=== PATIENT | female | born 1950 | race Caucasian/White ===

== ENCOUNTER 2017-05-23 22:05 | Inpatient (IN) | payer MEDICARE, OTHER ==
[2017-05-23 23:00] LABS: BILIRUBIN,URINE NEGATIVE (NEGATIVE)
[2017-05-23 23:01] LABS: UA CHARGE (STRIP ONLY) YES; UR CULTURE IF IND NOT INDICATED
[2017-05-23 23:24] LABS: BASOPHILS # (AUTO) 0.1 10^3/uL (0.0-0.1); EOSINOPHILS # (AUTO) 0.2 10^3/uL (0.0-0.7); EOSINOPHILS % (AUTO) 2.6 %; HCT - HEMATOCRIT 43.2 % (37.0-47.0); HGB - HEMOGLOBIN 14.7 g/dL (12.0-16.0); LYMPHOCYTES # (AUTO) 3.1 10^3/uL (1.5-3.5); LYMPHOCYTES % (AUTO) 32.6 %; MEAN CORPUSCULAR HEMOGLOBIN 29.9 pg (27.0-31.0); MEAN CORPUSCULAR HGB CONC 33.9 g/dL (32.0-36.0); MEAN PLATELET VOLUME 10.8 fL (7.9-10.8); MONOCYTES # (AUTO) 0.9 10^3/uL (0.0-1.0); MONOCYTES % (AUTO) 9.4 %; NEUTROPHILS # (AUTO) 5.1 10^3/uL (1.5-6.6); NEUTROPHILS % (AUTO) 54.4 %; RED BLOOD COUNT 4.91 10^6/uL (4.20-5.40); RED CELL DISTRIBUTION WIDTH 14.3 % (12.0-15.0); UNCORRECTED WHITE BLOOD COUNT 9.4 x10^3/uL; WHITE BLOOD COUNT 9.4 x10^3/uL (4.8-10.8)
[2017-05-23 23:25] LABS: ALBUMIN/GLOBULIN RATIO 1.4 (1.0-2.2); BILIRUBIN,TOTAL 0.9 mg/dL (0.2-1.0); BUN - BLOOD UREA NITROGEN 19 mg/dL (6-20); CALCIUM 9.6 mg/dL (8.5-10.3); CARBON DIOXIDE - CO2 24 mmol/L (21-32); CHLORIDE 106 mmol/L (101-111); CREATININE 0.8 mg/dL (0.4-1.0); GFR - MDRD 71 (>89); GLUCOSE 105 mg/dL (70-100); LIPASE 30 U/L (22-51); POTASSIUM 3.8 mmol/L (3.5-5.0); SALICYLATE < 6.0 mg/dL; SODIUM 139 mmol/L (135-145); TOTAL PROTEIN 7.3 g/dL (6.7-8.2)
[2017-05-23 23:29] LABS: ACETAMINOPHEN < 10 ug/mL (10-30)
--- NOTE | 2017-05-23 23:43 | ED Physician Documentation ---
PD HPI ALTERED MENTAL STATUS - Stated complaint Stated Complaint: STROKE SYMPTOMS - Chief complaint Chief Complaint: Neuro - History obtained from History obtained from: Patient, Family - History of Present Illness Timing - onset: How many days ago (several) Timing - duration: Days (several) Timing - details: Gradual onset Quality / character: Confused, Memory Loss (short term). No: Less responsive, Unresponsive Associated symptoms: No: Fever, Headache, Stiff neck, Dyspnea, Cough, NVD, Urinary sx, General weakness, Focal weakness, Seizure activity, Syncope Contributing factors: No: Anticoagulated, Diabetic, Cancer, COPD, New medication , Recent med change, Recent illness, Recent injury, Intoxicated, Substance abuse , Known psych illness Basline status: Alert and oriented X 3, Ambulatory, Independent Similar symptoms before: Has not had sx before Recently seen: Not recently seen - Additional information Additional information: Patient is a 66-year-old female who was brought into the emergency department by her family for acute confusion for the past 2 days. Apparently did not know her own children. Went to work and did not know any of her coworkers are how to perform her usual job. This appears to be a very abrupt change in mental status. No fevers. No trauma. Review of Systems Ten Systems: 10 systems reviewed and negative Constitutional: denies: Fever, Chills Nose: denies: Rhinorrhea / runny nose, Congestion Respiratory: denies: Cough GI: denies: Nausea, Vomiting, Diarrhea Skin: denies: Rash Musculoskeletal: denies: Neck pain, Back pain Neurologic: reports: Confused, Altered mental status. 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 - Allergies Allergies/Adverse Reactions: Allergies Allergy/AdvReac Type Severity Reaction Status Date / Time No Known Drug Allergies Allergy Verified 05/23/17 22:15 - Social History Does the pt smoke?: No Smoking Status: Never smoker Does the pt drink ETOH?: No Does the pt have substance abuse?: No - Immunizations Immunizations are current?: No PD ED PE NORMAL - Vitals Vital signs reviewed: Yes - General General: Alert and oriented X 3, No acute distress, Well developed/nourished - HEENT HEENT: Atraumatic, PERRL, Moist mucous membranes - Neck Neck: Supple, no meningeal sign - Cardiac Cardiac: RRR, Strong equal pulses - Respiratory Respiratory: No respiratory distress, Clear bilaterally - Abdomen Abdomen: Soft, Non tender - Back Back: No spinal TTP - Derm Derm: Warm and dry - Extremities Extremities: No edema, No calf tenderness / cord - Neuro Neuro: Alert and oriented X 3, historic site administrator 2-12 intact, No motor deficit, No sensory deficit, Normal speech, Other (Normal cerebellar tests) - Psych Psych: Normal mood, Normal affect Results - Vitals Vitals: Vital Signs - 24 hr 05/23/17 05/23/17 22:12 23:20 Temperature 36.1 C L Heart Rate 52 L 49 L Respiratory 16 16 Rate Blood Pressure 198/91 H 189/76 H O2 Saturation 97 97 Oxygen O2 Source Room air - Labs Labs: Laboratory Tests 05/23/17 05/23/17 05/23/17 22:37 22:47 23:05 WBC 9.4 RBC 4.91 Hgb 14.7 Hct 43.2 MCV 88.0 MCH 29.9 MCHC 33.9 RDW 14.3 Plt Count 205 MPV 10.8 Neut # 5.1 Lymph # 3.1 [place] # 0.9 Eos # 0.2 Baso # 0.1 Absolute Nucleated RBC 0.00 Nucleated RBCs 0.0 APTT Sodium Potassium Chloride Carbon Dioxide Anion Gap BUN Creatinine Estimated GFR (MDRD) Glucose POC Whole Bld Glucose 94 Calcium Total Bilirubin AST ALT Alkaline Phosphatase Troponin I Total Protein Albumin Globulin Albumin/Globulin Ratio Lipase Urine Color YELLOW Urine Clarity CLEAR Urine pH 6.0 Ur Specific [place] 1.020 Urine Protein NEGATIVE Urine Glucose (UA) NEGATIVE Urine Ketones NEGATIVE Urine Occult Blood NEGATIVE Urine Nitrite NEGATIVE Urine Bilirubin NEGATIVE Urine Urobilinogen 0.2 (NORMAL) Ur Leukocyte Esterase NEGATIVE Ur Microscopic Review NOT INDICATED Urine Culture Comments NOT INDICATED Salicylates Urine Opiates Screen NEGATIVE Ur Oxycodone Screen NEGATIVE Urine Methadone Screen NEGATIVE Ur Propoxyphene Screen NEGATIVE Acetaminophen Ur Barbiturates Screen NEGATIVE Ur Tricyclics Screen NEGATIVE Ur Phencyclidine Scrn NEGATIVE Ur Amphetamine Screen NEGATIVE U Methamphetamines Scrn NEGATIVE U Benzodiazepines Scrn NEGATIVE Urine Cocaine Screen NEGATIVE U Cannabinoids Screen NEGATIVE Ethyl Alcohol 06/05/23/17 05/23/17 23:05 23:05 23:05 WBC RBC Hgb Hct MCV MCH MCHC RDW Plt Count MPV Neut # Lymph # [place] # Eos # Baso # Absolute Nucleated RBC Nucleated RBCs APTT 30.9 Sodium 139 Potassium 3.8 Chloride 106 Carbon Dioxide 24 Anion Gap 9.0 BUN 19 Creatinine 0.8 Estimated GFR (MDRD) 71 L Glucose 105 H POC Whole Bld Glucose Calcium 9.6 Total Bilirubin 0.9 AST 27 ALT 24 Alkaline Phosphatase 68 Troponin I < 0.04 Total Protein 7.3 Albumin 4.3 Globulin 3.0 Albumin/Globulin Ratio 1.4 Lipase 30 Urine Color Urine Clarity Urine pH Ur Specific [place] Urine Protein Urine Glucose (UA) Urine Ketones Urine Occult Blood Urine Nitrite Urine Bilirubin Urine Urobilinogen Ur Leukocyte Esterase Ur Microscopic Review Urine Culture Comments Salicylates < 6.0 Urine Opiates Screen Ur Oxycodone Screen Urine Methadone Screen Ur Propoxyphene Screen Acetaminophen < 10 L Ur Barbiturates Screen Ur Tricyclics Screen Ur Phencyclidine Scrn Ur Amphetamine Screen U Methamphetamines Scrn U Benzodiazepines Scrn Urine Cocaine Screen U Cannabinoids Screen Ethyl Alcohol < 5.0 - Rads (name of study) head CT Radiology: Prelim report reviewed, EMP read contemporaneously, See rad report ( No definite CT evidence of acute intracranial abnormality, specifically no CT evidence of acute infarct, intracranial hemorrhage, mass effect, midline shift, or hydrocephalus. Acute infarct, however, is not excluded by CT. Ill-defined hypodensity within the right basal ganglia (series 3 image 12, series 6 image 16 ) measuring approximately 1.3 cm. This is favored to represent sequela of remote lacunar infarct. Moderate diffuse cerebral and cerebellar volume loss with ex vacuo dilatation of the ventricles and sulci. ) PD MEDICAL DECISION MAKING - ED course Complexity details: reviewed results, re-evaluated patient, considered differential, d/w patient, d/w family ED course: Patient is a 66-year-old female who presents to the emergency department with acute mental status changes. Concern for possible lacunar stroke. No evidence of encephalitis, meningitis. Also possible that she has had mild dementia and this is simply worsening. She does not see a primary care provider. She does have hypertension and used to be on medications, but is no longer taking them. Is not currently taking any medications at home. No fevers. No neck pain. Discussed the case with Dr. Rodrigues and will admit the patient. This document was made in part using voice recognition software. While efforts are made to proofread this document, sound alike and grammatical errors may occur. Departure - Departure Disposition: ED Place in Observation Clinical Impression: Confusion, Lacunar infarction Hypertension Qualifiers: Hypertension type: essential hypertension Qualified Code(s): I10 - Essential ( primary) hypertension Condition: Stable Discharge Date/Time: 05/24/17 01:21
--- NOTE | 2017-05-23 23:54 | CT Preliminary Report ---
Exam: CT Head W/O IMPRESSION: 1. No definite CT evidence of acute intracranial abnormality, specifically no CT evidence of acute in farct, intracranial hemorrhage, mass effect, midline shift, or hydrocephalus. Acute infarct, however, is not excluded by CT. 2. Ill-defined hypodensity within the right basal ganglia (series 3 image 12, series 6 image 16) lida uring approximately 1.3 cm. This is favored to represent sequela of remote lacunar infarct. 3. Moderate diffuse cerebral and cerebellar volume loss with ex vacuo dilatation of the ventricles an d sulci. [facility] SITE ID: [id number]
--- NOTE | 2017-05-23 23:57 | CT Report ---
EXAM: CT HEAD EXAM DATE: 05/23/2017 10:59 PM. CLINICAL HISTORY: Altered mental status. COMPARISON: None. TECHNIQUE: Multiaxial CT images were obtained from the foramen magnum to the vertex. IV contrast: Non e. Reformats: Coronal. In accordance with CT protocol optimization, one or more of the following dose reduction techniques w ere utilized for this exam: automated exposure control, adjustment of mA and/or KV based on patient s ize, or use of iterative reconstructive technique. FINDINGS: Parenchyma: No intraparenchymal hemorrhage. No evidence of mass, midline shift, or CT findings of acu te infarction. There is ill-defined hypodensity within the right basal ganglia (series 3 image 12, se nolberto 6 image 16) measuring approximately 1.3 cm. This is favored to represent sequela of remote lacun ar infarct. Varela-white differentiation is distinct. Extraaxial Spaces: Normal for age. No subdural or epidural collections identified. Ventricles: The ventricles and cortical sulci are enlarged, consistent with age-related tissue loss. Sinuses: Imaged paranasal sinuses, orbits, and mastoids show no significant abnormality. Bones: No evidence of fracture or calvarial defect. Other: Diffuse chronic microangiopathic white matter changes are evident. IMPRESSION: 1. No definite CT evidence of acute intracranial abnormality, specifically no CT evidence of acute in farct, intracranial hemorrhage, mass effect, midline shift, or hydrocephalus. Acute infarct, however, is not excluded by CT. 2. Ill-defined hypodensity within the right basal ganglia (series 3 image 12, series 6 image 16) lida uring approximately 1.3 cm. This is favored to represent sequela of remote lacunar infarct. 3. Moderate diffuse cerebral and cerebellar volume loss with ex vacuo dilatation of the ventricles an d sulci. [facility] Referring Provider Line: [phone] SITE ID: [id number]
[2017-05-24] MEDS ORDERED: ACETAMINOPHEN 325 MG TABLET PO PRN (00:09)
[2017-05-24] MEDS ORDERED: ONDANSETRON 4 MG/2 ML VIAL IVP PRN (00:09)
[2017-05-24] MEDS ORDERED: HYDROcod/ACETAM 5/325 MG TABLET PO PRN (00:09)
[2017-05-24] MEDS ORDERED: PROCHLORPERAZINE 10 MG/2 ML VIAL IVP PRN (00:09)
[2017-05-24] MEDS ORDERED: PROMETHAZINE 25 MG/1 ML VIAL IM PRN (00:09)
[2017-05-24] MEDS ORDERED: SODIUM CHLORIDE FLUSH 0.9% 10 ML SYRINGE IVP PRN (00:09)
[2017-05-24] MEDS ORDERED: HYDROcod/ACETAM 10 MG/325 MG TABLET PO PRN (00:09)
[2017-05-24] MEDS ORDERED: NIFEdipine ER 30 MG TABLET PO SCH (01:30)
[2017-05-24] MEDS: ASPIRIN 325 MG TABLET PO SCH ×2 (01:50→09:57)
--- NOTE | 2017-05-24 03:45 | HISTORY & PHYSICAL EXAMINATION ---
Chief Complaint - Chief Complaint Chief Complaint: confusion History of Present Illness - Admitted From Admitted From:: emergency department - History Obtained From Records Reviewed: yes History obtained from: patient, patient's and patient's granddaughter Exam Limitations: none - History of Present Illness HPI Comment/Other: Patient is a very pleasant 66-year-old female with a past medical history significant for hypertension not on any medications and according to the granddaughter she has been hospitalized before and told she had a stroke and [place] but the patient denies this she presented to the emergency department today for confusion. The patient does admit that she was confused but states that this is do to being overworked and a lack of eating. The patient's granddaughter and tell a different story. The patient's granddaughter states that 2 days ago the patient became acutely confused. 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 When she arrived she could not remember any of her coworkers names and could not remember what she was supposed to be doing. The patient's states that the patient has had some bouts of memory loss and confusion off and on over the years but this is the worst that he has ever seen. The patient's granddaughter states that she continued to be confused today. She states that her grandmother told her that she felt as though she was in a fog. The granddaughter states she could not remember how many children she has or their names. Also for the last 2 days she has been talking to her mother who many years ago. The family were very concerned with this behavior. The patient states she was talking to her spirit.The patient stated that she had worked very hard this week and blamed that on her confusion. The patient did not have any focal weakness or focal neurologic symptoms she was just confused. The patient denied any headaches, blurred vision, runny nose, fevers, chills, chest pain, shortness of air, orthopnea, increased lower extremity swelling, abdominal pain, nausea, vomiting , urinary urgency, frequency or dysuria, she also denied any focal neurologic deficits. The patient had normal speech and initially was disoriented to time. The patient's also stated that the patient was more irritable than normal and was easily losing her temper. The patient stated that this was due to her and if he just left her alone she would not be so irritated. The family states the patient does not like to go to the doctor or take medications or come to the hospital. Today the granddaughter brought the patient to the hospital saying that the grandaughter needed to come in for something. On presentation to the emergency department the patient was afebrile she was bradycardic and very hypertensive with blood pressure of 198/91 she was otherwise not in any respiratory distress. The patient was alert, talking and seemed to be quite oriented. She did not have any obvious focal neurologic deficits. According to the family she still was not her normal self. The patient 's CBC, chemistry, urine analysis and urine tox screen were all within normal limits. The patient's CT head revealed an ill-defined hypodensity within the right basal ganglia measuring approximately 1.3 cm. This is papered to represent sequelae of remote lacunar infarct. The patient was also found to have moderate diffuse cerebral and cerebellar volume loss with ex vacuo dilated patient of the ventricles and sulci. Given the CT findings the patient was thought to have had likely had a recent stroke and was now manifesting this memory loss and confusion. The patient was started on aspirin and Lipitor. She was admitted to the medical [facility]ino[facility] and we will get further imaging with a CT angiogram and MRI of the brain. Review of Systems - Constitutional Constitutional: reports: Fatigue, Weakness. denies: Fever, Chills, Malaise, Poor appetite, Diaphoresis, Night sweats, Weight gain, Weight loss - Eyes Eyes: denies: Pain, Irritation, Amaurosis, Blurred vision, Spots in vision, Vision loss, Dipolpia - Ears, Nose & Throat Ears, Nose & Throat: denies: Ear pain, Hearing loss, Hearing aids, Tinnitus, Vertigo, Nasal discharge, Nosebleeds, Nasal congestion, Sore throat, Hoarseness , Mouth lesions - Cardiovascular Cariovascular: denies: Irregular heart rate, Palpitations, Chest pain, Edema, Lightheadedness, Syncope, Exertional dyspnea, Decr. exercise tolerance, Orthopnea - Respiratory Respiratory: denies: Cough, Sputum production, Wheezing, Snoring, Hemoptysis, Orthopnea, SOB at rest, SOB with exertion, Pleuritic pain - Gastrointestinal Gastrointestinal: denies: Abdominal pain, Abdominal distention, Constipation, Diarrhea, Change in bowel habits, Rectal bleeding, Black stools, Bloody stools, Nausea, Vomiting, Bile emesis, Sd blood emesis, Coffee grounds emesis, Bloating, Poor appetite - Genitourinary Genitourinary: denies: Dysuria, Frequency, Urgency, Hematuria, Incontinence, Flank pain, Nocturia - Musculoskeletal Musculoskeletal: denies: Muscle pain, Back pain, Muscle aches, Stiffness, Limited range of motion, Muscle weakness, Gout, Joint pain, Joint swelling - Integumentary Integumentary: denies: Rash, Pruritis, Lesions, Dryness, Lumps, Nail changes - Neurological Neurological: reports: General weakness, Memory problems. denies: Focal weakness, Headache, Dizziness, Numbness, Pre-existing deficit, Abnormal gait, Seizures, Incoordination, Slurred speech - Psychiatric Psychiatric: denies: Depression, Anxiety, Suicidal - Endocrine Endocrine: denies: Polyuria, Polydypsia, Polyphagia, Intolerance to cold, Intolerance to heat - Hematologic/Lymphatic Hematologic/Lymphatic: denies: Anemia, Petechiae, Blood clots, Lymphadenopathy History - Past Medical History Cardiovascular: reports: Hypertension, [place] Respiratory: reports: Other Neuro: reports: CVA Endocrine/Autoimmune: reports: None GI: reports: None CATALYST UNIT OPERATOR: reports: None : reports: Incontinence HEENT: reports: None Psych: reports: None Musculoskeletal: reports: Chronic back pain Derm: reports: Other MRSA Hx?: No Other Past Medical History: 1. Hypertension. 2. [place] according to patient's granddaughter but denied by patient. 3. CVA according to patient's grand daughter but denied by patient - Past Surgical History /CATALYST UNIT OPERATOR: reports: section, Hysterectomy - Family & Social History Family History: Mother: (Mother at 93 and had dementia), Alzheimer 's Disease, Father: , Alcoholism Family History Comment/Other: Patient's mother had dementia and at age 93. Patient's father was an alcoholic. She had no siblings Living arrangement: At home Living Situation: With spouse/s.o., With family (Granddaughter) Social History Notes: The patient lives with her and granddaughter and [place]. They have lived there since 1988 prior to that they were in [facility]. The patient was raised near [facility]. 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 The patient had 4 children. 2 of whom are from a previous marriage and 2 are from her current . The patient has never smoked she does not drink alcohol and denies any illicit drug use. - Substance History Use: Uses substance without health or social issues: NONE Abuse: Recurrent use of substance despite neg consequences: NONE Dependence: Experiences withdrawal or developed tolerances: NONE - POLST Patient has POLST: No POLST Status: Full Code Meds/Allgy - Allergies Allergies/Adverse Reactions: Allergies Allergy/AdvReac Type Severity Reaction Status Date / Time No Known Drug Allergies Allergy Verified 05/23/17 22:15 Exam - Vital Signs Reviewed Vital Signs: Yes Vital Signs: Vital Signs x48h Temp Pulse Pulse Resp BP BP Pulse Ox 05/24/17 02:49 158/65 H 05/24/17 01:37 36.3 C L 50 L 18 213/84 H 99 05/24/17 01:07 57 L 14 204/94 H 97 - Physical Exam General Appearance: positive: No acute distress, Alert, Other (Confusion) Eyes Bilateral: positive: Normal inspection, PERRL, EOMI, No lid inflammation, Conjunctivae nml, No scleral icterus ENT: positive: ENT inspection nml, Pharynx nml, No signs of dehydration. negative: Purulent nasal drainage, Pharyngeal erythema, Oral lesions Neck: positive: Nml inspection, Thyroid nml, No JVD, Trachea midline. negative : Thyromegaly, Lymphadenopathy (R), Lymphadenopathy (L), Carotid bruit, Tracheal deviation Respiratory: positive: Chest non-tender, No respiratory distress, Breath sounds nml. negative: Wheezes, Rales, Rhonchi Cardiovascular: positive: Regular rate & rhythm, No murmur, No gallop Peripheral Pulses: positive: 2+ Abdomen: positive: Non-tender, No organomegaly, Nml bowel sounds, No distention. negative: Guarding, Rebound Back: positive: Nml inspection. negative: CVA tenderness (R), CVA tenderness (L ) Skin: positive: Color nml, No rash, Warm. negative: Cyanosis, Pallor Extremities: positive: Non-tender, Full ROM, Nml appearance, No pedal edema Neurologic/Psychiatric: positive: CN's nml (2-12), Motor nml, Sensation nml, Mood/affect nml, Disoriented to time, Other (Confused) Conclusion/Plan - Problem List (1) Lacunar infarction Conclusion/Plan: The CT head reveals a remote lacunar infarct. It is not clear whether this is subacute and the cause of the patients symptoms or whether this is an old stroke. Considering the patients presentation we will treat this as an acute stroke until we get further imaging such as an MRI and CTA. The patient is very hypertensive on presentation given that her symptoms started a few days ago we will allow for less permissive hypertension especially since we are not completely sure whether this is truly an acute stroke as it could also be encephalopathy secondary to hypertension. Plan: CTA head and neck MRI of the brain Tele monitoring Neuro checks ASA and Lipitor A1C and Lipid profile in am Echocardiogram OT consult (2) Confusion Conclusion/Plan: Appears likely to be secondary to a stroke and likely the lacunar infarct seen on CT but will need to wait for MRI to confirm. Patient could also be having progressing dementia as patients family does give some vague history of previous off and on symptoms of memory loss. The patient also presented with a very elevated BP and has history of untreated HTN so this could all be from hypertensive encephalopathy but it is unclear at this point. Dont want to be too aggressive treating the BP as patient may have had a stoke but given that symptoms started a few days ago will treat BP less aggressively as this could be hypertensive encephalopathy. Patient does not appear to have any infections. Plan: Treat stroke and get MRI and CTA Treat BP less aggressively but bring below 185 incase this is hypertensive encephalopathy Check TSH, B12 and folate (3) Hypertension Conclusion/Plan: Patients BP is very elevated at 213/84 This could be the bodies response due to a subacute stroke with attempt to perfuse the brain parenchyma This could also be the cause of patients confusion and symptoms as she could have hypertensive encephalopathy Since it has been several days since her initial symptoms we will be less aggressive with permissive hypertension and treat the current BP Plan: Start Nifedipine 30 mg PO daily Monitor BP closely Allow for BP to be over 140 systolic and 85 diastolic but keep less than 185/100 Qualifiers: Hypertension type: essential hypertension Qualified Code(s): I10 - Essential (primary) hypertension (4) Bradycardia Conclusion/Plan: Sinus bradycardia without evidence of heart block Patients heart rate is in the 50s This could be a vagal response after an acute stroke The patient is not symptomatic unless symptoms are confusion which is unlikely Plan: Avoid any rate lowering medications Patient is being starting on nifedipine for HTN but this is not a rate lowering CCB Monitor on telemetry - Lab Results Lab results reviewed: Yes Mike Bones: 05/23/17 23:05 05/23/17 23:05 - Diagnostic Imaging Results Diagnostic Imaging Results: positive: Final report reviewed - EKG Results EKG Interpreted Independently: Yes Issues/Core Measures - Anticipated LOS Anticipated Stay Length: 2 or more midnights - DVT/VTE - Prophylaxis VTE/DVT Device ordered at admit?: Yes
[2017-05-24] MEDS ORDERED: IOPAMIDOL-300 100 ML VIAL IVP ONE (04:45)
[2017-05-24] MEDS: PANTOPRAZOLE 40 MG TABLET PO SCH (06:14)
[2017-05-24] MEDS: SODIUM CHLORIDE FLUSH 0.9% 10 ML SYRINGE IVP SCH ×3 (06:14→20:46)
--- NOTE | 2017-05-24 06:18 | CT Preliminary Report ---
Exam: CT Head Angio IMPRESSION: 1. No abnormal brain parenchymal enhancement. 2. Patent major intracranial arteries. 3. However, diffuse irregularity of the anterior and posterior circulation vessels is seen, likely re presenting severe intracranial atherosclerosis. Focal high-grade stenoses are seen in the left A1, ri ght V4 segments, and basilar artery. [facility] SITE ID: [id number]
[2017-05-24 06:26] LABS: BASOPHILS # (AUTO) 0.1 10^3/uL (0.0-0.1); BASOPHILS % (AUTO) 0.6 %; EOSINOPHILS # (AUTO) 0.2 10^3/uL (0.0-0.7); HCT - HEMATOCRIT 42.3 % (37.0-47.0); HGB - HEMOGLOBIN 14.2 g/dL (12.0-16.0); LYMPHOCYTES # (AUTO) 2.9 10^3/uL (1.5-3.5); LYMPHOCYTES % (AUTO) 27.4 %; MEAN CORPUSCULAR HGB CONC 33.5 g/dL (32.0-36.0); MEAN CORPUSCULAR VOLUME 89.4 fL (81.0-99.0); MEAN PLATELET VOLUME 11.1 fL (7.9-10.8); MONOCYTES # (AUTO) 0.9 10^3/uL (0.0-1.0); MONOCYTES % (AUTO) 8.4 %; NEUTROPHILS # (AUTO) 6.4 10^3/uL (1.5-6.6); NEUTROPHILS % (AUTO) 61.6 %; NUCLEATED RED BLOOD CELLS AUTO 0.1 /100WBC; RED BLOOD COUNT 4.73 10^6/uL (4.20-5.40); RED CELL DISTRIBUTION WIDTH 14.2 % (12.0-15.0); UNCORRECTED WHITE BLOOD COUNT 10.4 x10^3/uL; WHITE BLOOD COUNT 10.4 x10^3/uL (4.8-10.8)
--- NOTE | 2017-05-24 06:31 | CT Preliminary Report ---
Exam: CT Neck Angio IMPRESSION: 1. Focal stenoses of the bilateral vertebral artery origins measure 5060 percent on the right and 70 80 percent on the left. 2. However, the remaining cervical vertebral arteries are widely patent throughout the neck. 3. No hemodynamically significant stenosis in the carotid arteries. [facility] SITE ID: [id number]
--- NOTE | 2017-05-24 06:35 | CT Report ---
EXAM: CT ANGIOGRAM HEAD HEAD CT WITH CONTRAST EXAM DATE: 05/24/2017 04:16 AM. CLINICAL HISTORY: Lacunar infarct with 3 days of mental status change. COMPARISON: None. TECHNIQUE: Routine helical CTA imaging was performed through the head. IV Contrast: 100 mL Isovue-300 . Reconstructions: Routine multiplanar 3D MIP reconstructions. NASCET Criteria are used for stenosis measurements. In accordance with CT protocol optimization, one or more of the following dose reduction techniques w ere utilized for this exam: automated exposure control, adjustment of mA and/or KV based on patient s ize, or use of iterative reconstructive technique. FINDINGS: Anterior Circulation: The internal carotid arteries are patent from the superior cervical to the supr aclinoid portions. Calcified plaque is present in the bilateral carotid siphons but no definite high- grade stenosis is seen. The bilateral A1, A2, M1, and M2 segments are patent. No aneurysm is seen in the expected location of the anterior communicating artery. There is mild to moderate diffuse irregul arity of the anterior and middle cerebral arteries, likely representing intracranial atherosclerosis. Focal stenosis of the origin of the left A1 segment measures 70% (image 58, series 8). Posterior Circulation: Scattered calcified plaque is present in the left V4 segment but no definite h emodynamically significant stenosis is seen. The right V4 segment is diffusely irregular with coarse calcification in its mid segment and focal high-grade stenosis in its distal segment just before the basilar confluence measuring 8090% (image 87, series 8). The basilar artery is patent throughout its course to the terminus but demonstrates diffuse irregularity with multifocal stenoses which are like ly hemodynamically significant proximally. The superior cerebellar and posterior cerebral arteries ar e patent. There is origin or near origin of the bilateral posterior cerebral arteries, a normal variant. There is marked irregularity of the bilateral posterior cerebral arteries with modera te multifocal stenoses, likely representing intracranial atherosclerosis. There is normal contrast opacification in the dural venous sinuses. Other: On the postcontrast brain CT images, no abnormal brain parenchymal enhancement is appreciated. IMPRESSION: 1. No abnormal brain parenchymal enhancement. 2. Patent major intracranial arteries. 3. However, diffuse irregularity of the anterior and posterior circulation vessels is seen, likely re presenting severe intracranial atherosclerosis. Focal high-grade stenoses are seen in the left A1, ri ght V4 segments, and basilar artery. [facility] Referring Provider Line: [phone] SITE ID: [id number]
[2017-05-24 06:37] LABS: INR 1.1 (0.8-1.2); PT - PROTHROMBIN TIME 12.1 secs (9.9-12.6)
[2017-05-24 06:38] LABS: ALBUMIN/GLOBULIN RATIO 1.3 (1.0-2.2); BILIRUBIN,TOTAL 0.6 mg/dL (0.2-1.0); CALCIUM 9.1 mg/dL (8.5-10.3); CREATININE 0.7 mg/dL (0.4-1.0); POTASSIUM 3.5 mmol/L (3.5-5.0); TOTAL PROTEIN 6.7 g/dL (6.7-8.2)
--- NOTE | 2017-05-24 06:41 | CT Report ---
EXAM: CT ANGIOGRAM NECK EXAM DATE: 05/24/2017 04:16 AM. CLINICAL HISTORY: Lacunar infarct with 3 days of mental status change. COMPARISON: None. TECHNIQUE: Routine axial helical imaging was performed from the skull base through the aortic arch. I V Contrast: 100 mL Isovue-300. Reconstructions: Routine multiplanar 3D MIP reconstructions. Evaluatio n of arterial stenosis is based on a NASCET method of measurement. In accordance with CT protocol optimization, one or more of the following dose reduction techniques w ere utilized for this exam: automated exposure control, adjustment of mA and/or KV based on patient s ize, or use of iterative reconstructive technique. FINDINGS: Right Carotid: The common, internal, and external carotid arteries are patent. Mild calcified plaque is present at the carotid bifurcation but no hemodynamically significant stenosis is seen. Left Carotid: The common, internal, and external carotid arteries are patent. Mild calcified plaque i s present at the carotid bifurcation but no hemodynamically significant stenosis is seen. Vertebrals: Stenosis at the bilateral vertebral artery origins measure 5060% on the right (image 109 , series 8) and 7080% on the left (image 112, series 8). The vertebral arteries are roughly codomina nt and demonstrate no hemodynamically significant stenosis in their remaining cervical courses. Other: No pneumothorax or abnormal mass lesion is seen in the visualized upper lungs. The airway is p atent. Mild degenerative changes are present in the cervical spine. No acute abnormality is seen in t he soft tissues of the neck. IMPRESSION: 1. Focal stenoses of the bilateral vertebral artery origins measure 5060% on the right and 7080% on the left. 2. However, the remaining cervical vertebral arteries are widely patent throughout the remaining cour ses in the neck. 3. No hemodynamically significant stenosis in the carotid arteries. [facility] Referring Provider Line: [phone] SITE ID: [id number]
[2017-05-24 06:45] LABS: CHOLESTEROL 244 mg/dL; HDL CHOLESTEROL 41 mg/dL; LDL/HDL RATIO 4.2 (<4.4); TRIGLYCERIDES 147 mg/dL; VLDL CHOLESTEROL 29 mg/dL
[2017-05-24 09:46] LABS: HEMOGLOBIN A1C 0.65 g/dL
--- NOTE | 2017-05-24 09:46 | PROVIDER PROGRESS NOTE ---
Subjective - Prog Note Date Prog Note Date: 05/24/17 Prog Note Time: 09:43 - Subjective Subjective: here b/c family thinks I'm crazy, (I was talking to someone that wasnt there) "I think I was just tired they told me a few days ago I needed to take both those meds (Aspirin) When asked where she had been a few days ago that she was advised on asa, she said she'd been here that long (admitted last pm) Current Medications - Current Medications Current Medications: Active Medications Generic Name Dose Route Start Last Admin Trade Name Freq PRN Reason Stop Dose Admin Acetaminophen 650 mg 05/24/17 00:09 Tylenol PO Q4HR PRN Pain 1 to 4 Acetaminophen/Hydrocodone Bitart 1 tab 05/24/17 00:09 [place] 5/325 PO Q4HR PRN Pain 5 to 7 Acetaminophen/Hydrocodone Bitart 1 tab 05/24/17 00:09 [place] 10 Mg/325 Mg PO Q4HR PRN Pain 8 to 10 Aspirin 325 mg 05/24/17 01:00 05/24/17 09:57 Areli PO 325 mg DAILYWM SON Administration Atorvastatin Calcium 80 mg 05/24/17 21:00 05/24/17 20:45 Lipitor PO 80 mg QPM SON Administration Multivitamins 1 tab 05/24/17 08:00 05/24/17 09:57 Theragran PO 1 tab DAILYWM SON Administration Ondansetron HCl 4 mg 05/24/17 00:09 Zofran Inj IVP Q6HR PRN Nausea / Vomiting Pantoprazole Sodium 40 mg 05/24/17 07:00 05/24/17 06:14 Protonix PO 40 mg QDAC SON Administration Polyethylene Glycol 17 gm 05/24/17 09:00 05/24/17 09:57 Miralax PO 17 gm DAILY SON Administration Prochlorperazine Edisylate 10 mg 05/24/17 00:09 Compazine Inj IVP Q6HR PRN Nausea / Vomiting Promethazine HCl 25 mg 05/24/17 00:09 Phenergan Inj IM Q6HR PRN Nausea / Vomiting Sodium Chloride 10 ml 05/24/17 00:09 05/24/17 06:15 Normal Saline Flush 0.9% IVP 10 ml PRN PRN Administration NEEDED PER PROVIDER ORDERS Sodium Chloride 10 ml 05/24/17 06:00 05/24/17 20:46 Normal Saline Flush 0.9% IVP 10 ml Q8HR SON Administration No Known Home Medications [No Known Home Medications] 05/24/17 Objective - Vital Signs/Intake & Output Reviewed Vital Signs: Yes Vital Signs: Vital Signs x48h Temp Pulse Resp BP Pulse Ox 05/24/17 07:49 36.7 C 59 L 14 118/64 91 L 05/24/17 04:55 36.9 C 60 16 120/56 L 96 05/24/17 02:49 158/65 H Intake & Output: Intake & Output 05/21/17 05/22/17 05/23/17 05/24/17 23:59 23:59 23:59 23:59 Intake Total 100 Balance 100 - Objective General Appearance: positive: No acute distress, Other (lying in bed early in shift, sleeping, easily aroused pleasant, simplistic in conversation, but oriented) Eyes Bilateral: positive: Other (dysconjugate gaze (patient describes as chornoic w/ "lazy" left eye EOMs otherwise intact , face symmetric ? slight left droop, but doesnt notice strenght equal bilat upper and lower ext, no pronator drift, rapid alt movements intact) Neck: positive: Other Respiratory: positive: No respiratory distress, Breath sounds nml Cardiovascular: positive: Regular rate & rhythm, Other (sinus leslie on telemetry ) Back: negative: CVA tenderness (R), CVA tenderness (L) Skin: positive: Warm, Dry Extremities: positive: No pedal edema Neurologic/Psychiatric: positive: Oriented x3, Other (dysconjugate gaze ( patient describes as chornoic w/ "lazy" left eye EOMs otherwise intact , face symmetric ? slight left droop, but doesnt notice strenght equal bilat upper and lower ext, no pronator drift, rapid alt movements intact) - Lab Results Fish Bones: 05/24/17 05:34 05/24/17 05:34 Other Labs: Lab Results x24hrs 05/24/17 05/24/17 05/24/17 Range/Units 05:34 05:34 05:34 WBC (4.8-10.8) x10^3/uL RBC (4.20-5.40) 10^6/uL Hgb (12.0-16.0) g/dL Hct (37.0-47.0) % MCV (81.0-99.0) fL MCH (27.0-31.0) pg MCHC (32.0-36.0) g/dL RDW (12.0-15.0) % Plt Count (130-450) 10^3/uL MPV (7.9-10.8) fL Neut # (1.5-6.6) 10^3/uL Lymph # (1.5-3.5) 10^3/uL [place] # (0.0-1.0) 10^3/uL Eos # (0.0-0.7) 10^3/uL Baso # (0.0-0.1) 10^3/uL Absolute Nucleated RBC x10^3/uL Nucleated RBCs /100WBC PT (9.9-12.6) secs INR (0.8-1.2) Sodium 139 (135-145) mmol/L Potassium 3.5 (3.5-5.0) mmol/L Chloride 106 (101-111) mmol/L Carbon Dioxide 26 (21-32) mmol/L Anion Gap 7.0 (6-13) BUN 18 (6-20) mg/dL Creatinine 0.7 (0.4-1.0) mg/dL Estimated GFR (MDRD) 83 L (>89) Glucose 103 H (70-100) mg/dL Calcium 9.1 (8.5-10.3) mg/dL Total Bilirubin 0.6 (0.2-1.0) mg/dL AST 27 (10-42) IU/L ALT 22 (10-60) IU/L Alkaline Phosphatase 60 (42-121) IU/L Total Protein 6.7 (6.7-8.2) g/dL Albumin 3.8 (3.2-5.5) g/dL Globulin 2.9 (2.1-4.2) g/dL Albumin/Globulin Ratio 1.3 (1.0-2.2) Triglycerides 147 ( - 149) mg/dL Cholesterol 244 H ( - 199) mg/dL LDL Cholesterol, Calc 174 H ( - 129) mg/dL VLDL Cholesterol 29 mg/dL HDL Cholesterol 41 L (60 - ) mg/dL LDL/HDL Ratio 4.2 (<4.4) Cholesterol/HDL Ratio 6.0 (<4.4) TSH 2.10 (0.34-5.60) uIU/mL 05/24/17 05/24/17 Range/Units 05:34 05:34 WBC 10.4 (4.8-10.8) x10^3/uL RBC 4.73 (4.20-5.40) 10^6/uL Hgb 14.2 (12.0-16.0) g/dL Hct 42.3 (37.0-47.0) % MCV 89.4 (81.0-99.0) fL MCH 30.0 (27.0-31.0) pg MCHC 33.5 (32.0-36.0) g/dL RDW 14.2 (12.0-15.0) % Plt Count 186 (130-450) 10^3/uL MPV 11.1 H (7.9-10.8) fL Neut # 6.4 (1.5-6.6) 10^3/uL Lymph # 2.9 (1.5-3.5) 10^3/uL [place] # 0.9 (0.0-1.0) 10^3/uL Eos # 0.2 (0.0-0.7) 10^3/uL Baso # 0.1 (0.0-0.1) 10^3/uL Absolute Nucleated RBC 0.01 x10^3/uL Nucleated RBCs 0.1 /100WBC PT 12.1 (9.9-12.6) secs INR 1.1 (0.8-1.2) Sodium (135-145) mmol/L Potassium (3.5-5.0) mmol/L Chloride (101-111) mmol/L Carbon Dioxide (21-32) mmol/L Anion Gap (6-13) BUN (6-20) mg/dL Creatinine (0.4-1.0) mg/dL Estimated GFR (MDRD) (>89) Glucose (70-100) mg/dL Calcium (8.5-10.3) mg/dL Total Bilirubin (0.2-1.0) mg/dL AST (10-42) IU/L ALT (10-60) IU/L Alkaline Phosphatase (42-121) IU/L Total Protein (6.7-8.2) g/dL Albumin (3.2-5.5) g/dL Globulin (2.1-4.2) g/dL Albumin/Globulin Ratio (1.0-2.2) Triglycerides ( - 149) mg/dL Cholesterol ( - 199) mg/dL LDL Cholesterol, Calc ( - 129) mg/dL VLDL Cholesterol mg/dL HDL Cholesterol (60 - ) mg/dL LDL/HDL Ratio (<4.4) Cholesterol/HDL Ratio (<4.4) TSH (0.34-5.60) uIU/mL - Diagnostic Imaging Diagnostic Imaging Results: positive: Final report reviewed (discussed with neurology) Diagnostic Imaging Comments: Echocardiogram: normal LV size and function 70-75%, no WMA, severe incrase Latrial volume index (on preliminary read), trace MR, mild TR, RVSP 29 Assessment/Plan - Problem List (1) Thalamic infarct, acute Impression: on MRI; R anterior dorsal thalamic and denu of internal capusule acute inarct also deep cerebral and periventricular WM disease (also in mic) c/w started ASA and statin on admission Tele no dysrhythmia, echo no significant findings stopping Adalat started on admission to allow permissive HtN now that we know she did have stroke (her BP is reasonable, has no deficits currently at SBP 140's- 150's) Seen by PT and OT, they indicate no acute needs Discussed w/ neuro (Gianna Spencer at [facility]) and inquired if the 80-90% stenosiss noted distal segment of R V4 is pertinant (have not heard back) She indicated thalamic stroke; consistent with patients may seem to be logical and making sense, but arent May need outpatient speech language pjathology for cognitive testing post stroke (OT indicated [employer] does that VTE proph; lovenox (had SCD's on last night and today) (2) Bradycardia Impression: likely excess vagal tone in setting of acute stroke will continue tele tonight
[2017-05-24] MEDS: POLYETHYLENE GLYCOL 3350 17 GM PACKET PO SCH (09:57)
[2017-05-24] MEDS: MULTIVITAMIN TABLET PO SCH (09:57)
--- NOTE | 2017-05-24 14:04 | MRI Preliminary Report ---
Exam: MRI Brain W/O IMPRESSION: 1. Acute infarct in the right anterior thalamus and adjacent genu of the internal capsule, consistent with acute infarct (up to 7 days), as seen on the 05/23/2017 CT. No evidence of hemorrhage. 2. Mild to moderate white matter changes most consistent with sequelae of chronic small vessel ischem ic disease and a common finding in this age group. [facility] SITE ID: [id number]
--- NOTE | 2017-05-24 14:07 | MRI Report ---
EXAM: MRI BRAIN WITHOUT CONTRAST EXAM DATE: 05/24/2017 01:36 PM. CLINICAL HISTORY: 66-year-old woman with a lacunar infarct and 3 days of mental status changes. COMPARISON: Noncontrast head CT on 05/23/2017. TECHNIQUE: Multiplanar, multisequence T1-weighted and fluid-sensitive MR sequences of the brain were performed. Sequences optimized for routine evaluation. Other: None. IV Contrast: None. FINDINGS: Parenchyma: Restricted diffusion with prominent corresponding for FLAIR hyperintensity is present in the right anterior dorsal thalamus and genu of the internal capsule, consistent with acute infarct. T his measures approximately 1.7 x 0.9 cm. No evidence of hemorrhage on susceptibility weighted sequenc e. The remainder of the brain parenchyma demonstrates mild to moderate burden of nonspecific FLAIR hyper intensities in the deep cerebral and periventricular white matter as well as the mic, most consisten t with sequelae of chronic small vessel ischemic disease and a common finding in this age group. Pituitary: Unremarkable. Ventricles and Extra-axial Spaces: Ventricles are symmetric and normal in size for age. Extra-axial s paces are unremarkable. Orbits: Gaze is disconjugate, as on the prior CT. Orbits are otherwise unremarkable. Sinuses: The paranasal sinuses are clear. Small amount of fluid is present in the right mastoid air c ells. Major Vascular Flow Voids: Intact. IMPRESSION: 1. Acute infarct in the right anterior thalamus and adjacent genu of the internal capsule, consistent with acute infarct (up to 7 days), as seen on the 05/23/2017 CT. No evidence of hemorrhage. 2. Mild to moderate white matter changes most consistent with sequelae of chronic small vessel ischem ic disease and a common finding in this age group. [facility] Referring Provider Line: [phone] SITE ID: [id number]
[2017-05-24] MEDS ORDERED: ATORVASTATIN 40 MG TABLET PO SCH (21:00)
[2017-05-24] MEDS: ENOXAPARIN 40 MG/0.4 ML SYRINGE SUBQ SCH (21:19)
[2017-05-25] MEDS: PANTOPRAZOLE 40 MG TABLET PO SCH (06:39)
[2017-05-25] MEDS: SODIUM CHLORIDE FLUSH 0.9% 10 ML SYRINGE IVP SCH (06:39)
[2017-05-25 07:05] LABS: BASOPHILS # (AUTO) 0.1 10^3/uL (0.0-0.1); EOSINOPHILS # (AUTO) 0.4 10^3/uL (0.0-0.7); EOSINOPHILS % (AUTO) 4.3 %; HGB - HEMOGLOBIN 14.1 g/dL (12.0-16.0); LYMPHOCYTES # (AUTO) 2.6 10^3/uL (1.5-3.5); LYMPHOCYTES % (AUTO) 31.7 %; MEAN CORPUSCULAR HEMOGLOBIN 29.8 pg (27.0-31.0); MEAN CORPUSCULAR HGB CONC 32.8 g/dL (32.0-36.0); MEAN CORPUSCULAR VOLUME 90.8 fL (81.0-99.0); MONOCYTES # (AUTO) 0.8 10^3/uL (0.0-1.0); MONOCYTES % (AUTO) 9.9 %; NEUTROPHILS # (AUTO) 4.3 10^3/uL (1.5-6.6); NEUTROPHILS % (AUTO) 53.1 %; NUCLEATED RED BLOOD CELLS AUTO 0.1 /100WBC; RED BLOOD COUNT 4.73 10^6/uL (4.20-5.40); RED CELL DISTRIBUTION WIDTH 14.4 % (12.0-15.0); UNCORRECTED WHITE BLOOD COUNT 8.2 x10^3/uL; WHITE BLOOD COUNT 8.2 x10^3/uL (4.8-10.8)
[2017-05-25 07:08] LABS: ALBUMIN/GLOBULIN RATIO 1.3 (1.0-2.2); BILIRUBIN,TOTAL 0.8 mg/dL (0.2-1.0); CALCIUM 9.3 mg/dL (8.5-10.3); CREATININE 0.6 mg/dL (0.4-1.0); POTASSIUM 4.1 mmol/L (3.5-5.0); TOTAL PROTEIN 6.7 g/dL (6.7-8.2)
[2017-05-25 08:28] LABS: FOLATE 19.62 ng/mL (5.90 - >24.8)
[2017-05-25] MEDS ORDERED: DOCUSATE SODIUM 250 MG CAPSULE PO SCH (09:00)
[2017-05-25] MEDS ORDERED: SENNA 8.6 MG TABLET PO SCH (09:00)
--- NOTE | 2017-05-25 09:34 | Discharge Plan ---
Discharge Plan Disposition: 01 Home, Self Care Condition: Stable Prescriptions: Aspirin [Adult Low Dose Aspirin EC] 81 mg PO DAILY #30 tablet. Atorvastatin [Lipitor] 80 mg PO QPM #30 tablet Diet: Cardiac Activity Restrictions: No Restrictions Shower Restrictions: No Weight Bearing: Full Weight Additional Instructions or Follow Up instructions: You were admitted due to confusion, imaging of the brain showed a STROKE. You will start Aspirin and Lipitor daily to reduce risk of future stroke Return to the hospital for increased confusion, weakness, slurred speech. No Smoking: If you smoke, Please STOP! Call for help. Follow-up with: Dale Gorman MD [Provider Admit Priv/Credential] - 1 Week (See Dr Gorman in 1 week, can begin blood pressure management )
--- NOTE | 2017-05-25 10:09 | Discharge Plan ---
Discharge Plan Disposition: 01 Home, Self Care Condition: Stable Prescriptions: Aspirin [Adult Low Dose Aspirin EC] 81 mg PO DAILY #30 tablet. Atorvastatin Calcium 20 mg PO DAILY PM #30 tablet Amlodipine Besylate [Norvasc] 2.5 mg PO DAILY #30 tablet Diet: Cardiac Activity Restrictions: No Restrictions Shower Restrictions: No Driving Restrictions: Yes (no driving) Weight Bearing: Full Weight Additional Instructions or Follow Up instructions: You were admitted due to confusion, imaging of the brain showed a STROKE. You will start Aspirin and Lipitor (atorvastatin) daily to reduce risk of future stroke You will start Norvasc (amlodipine) to reduce blood pressure to prevent further strokes Return to the hospital for increased confusion, weakness, slurred speech. See Dr Gorman in the next 7days for blood pressure check and follow-up No Smoking: If you smoke, Please STOP! Call for help. Follow-up with: Dale Gorman MD [Provider Admit Priv/Credential] - 1 Week ()
[2017-05-25] MEDS: ASPIRIN 325 MG TABLET PO SCH (10:15)
[2017-05-25] MEDS: POLYETHYLENE GLYCOL 3350 17 GM PACKET PO SCH (10:15)
[2017-05-25] MEDS: ENOXAPARIN 40 MG/0.4 ML SYRINGE SUBQ SCH (10:15)
[2017-05-25] MEDS: MULTIVITAMIN TABLET PO SCH (10:16)
[2017-05-25] MEDS ORDERED: amLODIPine 5 MG TABLET PO SCH (11:00)
[2017-05-25 11:39] VITALS: BP 167/80
--- NOTE | 2017-05-27 07:49 | DISCHARGE SUMMARY ---
DATE OF ADMISSION: 05/24/2017 DATE OF DISCHARGE: 05/25/2017 ADMITTING PROVIDER: Martín Rodrigues MD DISCHARGING PROVIDER: UTE Hayes PRIMARY CARE PROVIDER: Dale Gorman MD DISCHARGE DIAGNOSES 1. Acute ischemic stroke, right anterior dorsal thalamic and genu of internal capsule. 2. Hypertension. 3. Bradycardia. DISCHARGE MEDICATION LIST Home medications to continue - patient was previously on no medications. New medications: 1. Aspirin 81 mg by mouth daily. 2. Atorvastatin 20 mg by mouth daily at bedtime. 3. Norvasc 2.5 mg by mouth daily. FOLLOWUP: Follow up with Dr. Gorman within 7 days for blood pressure check and followup on any maame rological symptoms, cardiac diet, activity as tolerated, no driving. HOSPITAL COURSE: Patient is a pleasant 66-year-old female with a history of hypertension b ut previously not on medications. She was brought to the emergency room for confusion. She felt yanci t this was due to being overworked and not eating much. For the last 2 days, she was reported as elayne candice to her mother, who many years ago; this is new behavior for the patient. She had no headac he, blurry vision, runny nose, fever or chills, or chest pain. No other focal weakness, and no gait changes. Her speech was normal but occasionally disoriented. Upon admission, labs and imaging were obtained. CBC grossly unremarkable. Normal anticoagulation fa ctors. Chemistries were unremarkable with an A1c of 6.2 and estimated average glucose of 131. Lipid panel obtained: Triglycerides 147, cholesterol 244, LDL 174, HDL 41 with normal B12, folate, and TSH . Brain imaging consisted of CT head, which showed no definite intracranial abnormalities, but previous old lacunar infarct on the inner right basal ganglia and moderate diffuse cerebral volume loss. Followup CTA head and neck revealed patent major intracranial arteries; however, there are diffuse ir regularities in the anterior and posterior circulation vessels likely representing severe intracrania l atherosclerosis and focal high-grade stenosis at the left A1 and right V4 segments and basilar cornel ry. MRI of the brain revealed an acute infarct in the right anterior thalamus and adjacent genu of corporate legal intern al capsule, consistent with an acute infarct within the last 7 days. There was no evidence of hemorr nasim. There were also mild to moderate white matter changes consistent with sequelae of chronic smal l vessel disease. The patient was started on aspirin, as well as Lipitor for stroke prophylaxis. Echocardiogram was ob tained, which showed a normal EF of 70% to 75%, no atrial fibrillation or valvular disease, no vegeta tions or thrombus. The patient was evaluated by both Physical and Occupational Therapy, found to be at her baseline functional status with no deficits that would require further therapy. There was con cern about the patient's cognitive status. Currently at baseline per her . If there continue s to be any concern with cognitive abilities, would refer for outpatient speech therapy to perform co gnitive evaluation. At discharge, the patient's blood pressure remained 150-160s. She will be discharged on low-density Norvasc to slowly reduce her systolic blood pressure to goal of less than 140. Patient had mild zulma ycardia, as low as 49 beats per minute initially on admission; this resolved, and her heart rate was 70 at discharge. She had no other neurological changes while in the hospital and is clear for discha rge home under the care of her with further stroke prophylaxis therapy. PHYSICAL EXAMINATION VITAL SIGNS: Temperature 36.7 degrees Celsius, heart rate 70 beats per minute, respiration 18 breaths per minute, blood pressure 167/80, 95% on room air. GENERAL: Patient is a well-developed overweight 66-year-old female who appears her stated a ge, lying in the bed in no acute distress. She is able to reposition herself in the bed, get up and walk around without any help. She has a stable gait. She follows 3-step commands, coordination inta ct; reports poor vision, improved with use of her eyeglasses. No focal neurological deficits. RESPIRATORY: Respirations equal and unlabored with clear bilateral breath sounds. CARDIAC: Regular rate and rhythm, palpable peripheral pulses, and no dependent edema in the lower ext remities. ABDOMEN: Round, soft, nontender with active bowel sounds x4 quadrants. Time spent on discharge greater than 30 minutes. JOB #: [id number] EXT JOB #:[id number]
== END 2017-05-25 12:00 | disposition home or self-care (01) | DRG 66 ==
LOC: ED 22:05 → MS 05-24 00:09
PROVIDERS: ADMIT Internal Medicine; ATTEND Nurse Practitioner Acute Care
DX: I63.9 Cerebral infarction, unspecified (principal); R41.0 Disorientation, unspecified; I63.8 Other cerebral infarction; R41.89 Other symptoms and signs involving cognitive functions and awareness; I10 Essential (primary) hypertension; R00.1 Bradycardia, unspecified
CPT/HCPCS: 36415; 70450; 70496; 70498; 70551; 80053; 80061; 80306; 80307; 80320; 80329; 81001; 81003; 82607; 82746; 83036; 83690; 84443; 84484; 85025; 85610; 85730; 87086; 93005; 93306; 99283; 99284; 99285

== ENCOUNTER 2018-03-03 06:36 | Emergency (ER) | payer MEDICARE, OTHER ==
--- NOTE | 2018-03-03 07:17 | ED Physician Documentation ---
History of Present Illness - Stated complaint Stated Complaint: BACK PX - Chief complaint Chief Complaint: Back Pain - History obtained from History obtained from: Patient, Family - History of Present Illness Timing: How many weeks ago (2) - Additonal information Additional information: 59-year-old female with history of hypertension and prior CVA has developed constipation about 2 weeks ago and she is developed some back pain associated with this. She has had back pain previously with constipation. She is not on narcotics she has been on some MiraLAX without resolution and she has taken some Metamucil as well. She is normally incontinent of urine she denies any saddle anesthesia. Review of Systems Constitutional: denies: Fever Eyes: denies: Decreased vision Ears: denies: Ear pain Nose: denies: Congestion Throat: denies: Sore throat Cardiac: denies: Chest pain / pressure, Palpitations Respiratory: denies: Dyspnea, Cough GI: reports: Constipation. denies: Abdominal Pain, Nausea, Vomiting : reports: Incontinent. denies: Dysuria, Frequency Skin: denies: Rash Musculoskeletal: reports: Back pain. denies: Neck pain, Extremity pain Neurologic: denies: Generalized weakness, Focal weakness, Numbness PD PAST MEDICAL HISTORY - Past Medical History Cardiovascular: Hypertension, [place] Respiratory: Other Neuro: CVA Endocrine/Autoimmune: None GI: None SLURRY BLENDER: None : Incontinence HEENT: None Psych: None Musculoskeletal: Chronic back pain Derm: Other - Past Surgical History Past Surgical History: Yes /SLURRY BLENDER: section, Hysterectomy - Present Medications Home Medications: Ambulatory Orders Medication Instructions Recorded Confirmed Amlodipine Besylate [Norvasc] 2.5 mg PO DAILY #30 tablet 05/25/17 Aspirin [Adult Low Dose Aspirin EC] 81 mg PO DAILY #30 tablet. 05/25/17 Atorvastatin Calcium 20 mg PO DAILY PM #30 tablet 05/25/17 - Allergies Allergies/Adverse Reactions: Allergies Allergy/AdvReac Type Severity Reaction Status Date / Time No Known Drug Allergies Allergy Verified 03/03/18 06:41 - Social History Does the pt smoke?: No Smoking Status: Never smoker Does the pt drink ETOH?: No Does the pt have substance abuse?: No - Immunizations Immunizations are current?: No - POLST Patient has POLST: No POLST Status: Full Code PD ED PE NORMAL - Vitals Vital signs reviewed: Yes (Hypertensive systolic) - General General: Alert and oriented X 3, No acute distress, Well developed/nourished - HEENT HEENT: Atraumatic - Neck Neck: Supple, no meningeal sign - Cardiac Cardiac: RRR, No murmur - Respiratory Respiratory: No respiratory distress, Clear bilaterally - Abdomen Abdomen: Soft, Other (distended and non-tender) - Back Back: No CVA TTP, Other (There is left paraspinous muscle tenderness and firmness consistent with spasm at the L2 level. ) - Derm Derm: Normal color, Warm and dry, No rash - Extremities Extremities: No deformity, No edema - Neuro Neuro: Alert and oriented X 3, No motor deficit, No sensory deficit, Normal speech Eye Opening: Spontaneous Motor: Obeys Commands Verbal: Oriented GCS Score: 15 - Psych Psych: Normal mood, Normal affect Results - Vitals Vitals: Vital Signs - 24 hr // 06:38 Temperature 36.2 C L Heart Rate 66 Respiratory 16 Rate Blood Pressure 164/69 H O2 Saturation 99 Oxygen O2 Source Room air PD MEDICAL DECISION MAKING - ED course Complexity details: reviewed results, re-evaluated patient, considered differential, d/w patient, d/w family ED course: 67-year-old female with a history of constipation has been constipated and has some back pain associated with her constipation. She is given a enema does not hold it well and has only a scant amount of hard stool out and this does not improve her back pain somewhat. She would like to try to go home to use a stimulant laxative and here she is given a dose of milk of magnesia prior to discharge. Departure - Departure Disposition: 01 Home, Self Care Clinical Impression: Constipation Qualifiers: Constipation type: unspecified constipation type Qualified Code(s): K59.00 - Constipation, unspecified Condition: Stable Instructions: ED Constipation Follow-Up: Dale Gorman MD [Primary Care Provider] - Comments: Today for your constipation use a second dose of milk of magnesia if you do not have a bowel movement within the next 6 hours. Drink extra fluids. If you continue to have pain or your symptoms worsen or change return to the emergency department at any time.
[2018-03-03] MEDS ORDERED: MAGNESIUM HYDROXIDE 2,400 MG/30 ML UDC PO STA (09:13)
[2018-03-03 09:43] VITALS: BP 166/98
== END 2018-03-03 09:43 | disposition home or self-care (01) ==
LOC: ED 06:36
DX: K59.00 Constipation, unspecified (principal); I10 Essential (primary) hypertension; I25.2 Old myocardial infarction; Z86.73 Personal history of transient ischemic attack (TIA), and cerebral infarction without residual deficits; Z79.82 Long term (current) use of aspirin
CPT/HCPCS: 99283; A9270

== ENCOUNTER 2018-06-19 23:38 | Emergency (ER) | payer MEDICARE, OTHER ==
[2018-06-19 23:51] VITALS: BP 144/71
[2018-06-19] MEDS ORDERED: PROPARACAINE 0.5% OPHTH DROPS 15 ML EACHEYE STA (23:53)
--- NOTE | 2018-06-20 00:35 | ED Physician Documentation ---
PD HPI OPHTHO - Stated complaint Stated Complaint: BILAT EYE IRRATION - Chief complaint Chief Complaint: Heent - History obtained from History obtained from: Patient - History of Present Illness Timing - onset: How many hours ago (1) Timing - duration: Hours (1) Timing - details: Abrupt onset Pain level max: 2 Pain level now: 2 Location: Both Quality / character: Burning Associated symptoms: Redness, Tearing Contributing factors: FB, Wears glasses, Other (stuffing from a pillow.). No: Wears contacts Recently seen: Not recently seen Review of Systems Constitutional: denies: Fever, Chills Eyes: reports: Irritation. 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 05/25/17 Atorvastatin Calcium 20 mg PO DAILY PM #30 tablet 05/25/17 - Allergies Allergies/Adverse Reactions: Allergies Allergy/AdvReac Type Severity Reaction Status Date / Time No Known Drug Allergies Allergy Verified 06/19/18 23:51 - Social History Does the pt smoke?: No Smoking Status: Never smoker Does the pt drink ETOH?: No Does the pt have substance abuse?: No - Immunizations Immunizations are current?: No - POLST Patient has POLST: No POLST Status: Full Code PD ED PE NORMAL - Vitals Vital signs reviewed: Yes - General General: Alert and oriented X 3 - HEENT HEENT: Moist mucous membranes, Other (B eyes - Mild conjunctival injection. No drainage. No fluorescein uptake. Eyelids everted. No foreign body visible. Otherwise normal examination of the bilateral eyes) - Neck Neck: Supple, no meningeal sign - Derm Derm: Warm and dry - Neuro Neuro: Alert and oriented X 3 - Psych Psych: Normal mood, Normal affect Results - Vitals Vitals: Vital Signs - 24 hr 06/19/18 23:49 Temperature 36.7 C Heart Rate 62 Respiratory 16 Rate Blood Pressure 144/71 H O2 Saturation 97 Oxygen O2 Source Room air PD MEDICAL DECISION MAKING - ED course Complexity details: considered differential, d/w patient ED course: Patient is a 67-year-old female who presents to the emergency department with bilateral conjunctival irritation tonight. No fluorescein uptake. No corneal abrasions. Eyes were irrigated and the sensation was resolved. Will continue supportive care and follow-up with her doctor. Patient counseled regarding signs and symptoms for which I believe and urgent re-evaluation would be necessary. Patient with good understanding of and agreement to plan and is comfortable going home at this time This document was made in part using voice recognition software. While efforts are made to proofread this document, sound alike and grammatical errors may occur. - Sepsis Event Vital Signs: Vital Signs - 24 hr 06/19/18 23:49 Temperature 36.7 C Heart Rate 62 Respiratory 16 Rate Blood Pressure 144/71 H O2 Saturation 97 Oxygen O2 Source Room air Departure - Departure Disposition: 01 Home, Self Care Clinical Impression: Irritation of both eyes Condition: Good Instructions: ED Eye Particle Conjunctiva FB Rslv Follow-Up: Dale Gorman MD [Primary Care Provider] - Within 1 week (if not better) Comments: Return if you worsen. There is no visible foreign body in your eyes tonight. Discharge Date/Time: 06/20/18 00:40
== END 2018-06-20 00:40 | disposition home or self-care (01) ==
LOC: ED 23:38
DX: H57.8 Other specified disorders of eye and adnexa (principal); I10 Essential (primary) hypertension; I25.2 Old myocardial infarction; Z79.82 Long term (current) use of aspirin
CPT/HCPCS: 99283; J3490

== ENCOUNTER 2019-07-11 13:06 | Emergency (ER) | payer MEDICARE, OTHER ==
[2019-07-11 13:14] VITALS: BP 146/93
[2019-07-11] MEDS ORDERED: MELOXICAM 7.5 MG TABLET PO STA (14:06)
--- NOTE | 2019-07-11 14:09 | ED Physician Documentation ---
History of Present Illness - Stated complaint Stated Complaint: BACK PAIN - Chief complaint Chief Complaint: Back Pain - History obtained from History obtained from: Patient - History of Present Illness Timing: How many days ago (3) Pain level max: 5 Pain level now: 4 - Additonal information Additional information: 68-year-old female presents to the emergency department stating that her back is hurting from taking care of her kittens. Has not taken anything for this. No numbness or tingling. Worse with movement and better with rest. Has a history of chronic back issues. No fevers. No IV drug use. No bowel or bladder incontinence. 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 05/25/17 Atorvastatin Calcium 20 mg PO DAILY PM #30 tablet 05/25/17 Meloxicam [Mobic] 15 mg PO DAILY PRN #20 tablet 07/11/19 - Allergies Allergies/Adverse Reactions: Allergies Allergy/AdvReac Type Severity Reaction Status Date / Time No Known Drug Allergies Allergy Verified 07/11/19 13:14 - Social History Does the pt smoke?: No Smoking Status: Never smoker Does the pt drink ETOH?: No Does the pt have substance abuse?: No - Immunizations Immunizations are current?: No - POLST Patient has POLST: No POLST Status: Full Code PD ED PE NORMAL - Vitals Vital signs reviewed: Yes - General General: Alert and oriented X 3, No acute distress, Well developed/nourished - HEENT HEENT: PERRL, Moist mucous membranes - Neck Neck: Supple, no meningeal sign, No bony TTP - Cardiac Cardiac: RRR, No murmur - Respiratory Respiratory: No respiratory distress, Clear bilaterally - Abdomen Abdomen: Soft, Non tender, Non distended - Back Back: No spinal TTP, Other (No midline tenderness to palpation. No step-off or deformity.) - Derm Derm: Warm and dry - Extremities Extremities: Other (Normal bilateral lower extremity patellar and ankle jerk reflexes. Normal great toe extension bilaterally. no saddle anesthesia) - Neuro Neuro: Alert and oriented X 3, No motor deficit, No sensory deficit - Psych Psych: Normal mood, Normal affect Results - Vitals Vitals: Vital Signs - 24 hr 07/11/19 13:09 Temperature 36.6 C Heart Rate 65 Respiratory 19 Rate Blood Pressure 146/93 H O2 Saturation 98 Oxygen O2 Source Room air PD MEDICAL DECISION MAKING - ED course Complexity details: considered differential (No cauda equina, no spinal epidural abscess, no fracture, no aortic dissection or evidence of aneursym rupture), d/w patient ED course: Patient with chronic low back pain. Will place on meloxicam. We will follow-up with her doctor. No evidence of cauda equina, epidural abscess, fracture. No imaging indicated at this time. Patient counseled regarding signs and symptoms for which I believe and urgent re-evaluation would be necessary. Patient with good understanding of and agreement to plan and is comfortable going home at this time This document was made in part using voice recognition software. While efforts are made to proofread this document, sound alike and grammatical errors may occur. Departure - Departure Disposition: 01 Home, Self Care Clinical Impression: Low back strain Qualifiers: Encounter type: initial encounter Qualified Code(s): S39.012A - Strain of muscle, fascia and tendon of lower back, initial encounter Condition: Good Instructions: ED Sprain Strain Lumbar Follow-Up: Dale Gorman MD [Primary Care Provider] - Within 1 week Prescriptions: Meloxicam [Mobic] 15 mg PO DAILY PRN #20 tablet PRN Reason: pain Comments: Return if you worsen. You can use the meloxicam as needed for pain. Follow-up with your doctor for further care. Discharge Date/Time: 07/11/19 14:18
== END 2019-07-11 14:18 | disposition home or self-care (01) ==
LOC: ED 13:06
DX: S39.012A Strain of muscle, fascia and tendon of lower back, initial encounter (principal); X50.9XXA Other and unspecified overexertion or strenuous movements or postures, initial encounter; I10 Essential (primary) hypertension; Z79.82 Long term (current) use of aspirin
CPT/HCPCS: 99282; 99283; A9270

== ENCOUNTER 2019-07-17 07:59 | Outpatient (CLI) | payer MEDICARE, OTHER ==
[2019-07-17 12:51] LABS: BASOPHILS # (AUTO) 0.1 10^3/uL (0.0-0.1); BASOPHILS % (AUTO) 0.8 %; EOSINOPHILS # (AUTO) 0.2 10^3/uL (0.0-0.7); EOSINOPHILS % (AUTO) 1.9 %; HGB - HEMOGLOBIN 15.1 g/dL (12.0-16.0); LYMPHOCYTES # (AUTO) 2.1 10^3/uL (1.5-3.5); LYMPHOCYTES % (AUTO) 27.5 %; MEAN CORPUSCULAR HEMOGLOBIN 30.7 pg (27.0-31.0); MEAN CORPUSCULAR HGB CONC 33.4 g/dL (32.0-36.0); MEAN CORPUSCULAR VOLUME 91.9 fL (81.0-99.0); MEAN PLATELET VOLUME 13.2 fL (7.9-10.8); MONOCYTES # (AUTO) 0.7 10^3/uL (0.0-1.0); MONOCYTES % (AUTO) 9.2 %; NEUTROPHILS # (AUTO) 4.7 10^3/uL (1.5-6.6); NEUTROPHILS % (AUTO) 60.3 %; PLT - PLATELET COUNT 263 10^3/uL (130-450); RED BLOOD COUNT 4.92 10^6/uL (4.20-5.40); RED CELL DISTRIBUTION WIDTH 14.6 % (12.0-15.0); WHITE BLOOD COUNT 7.8 x10^3/uL (4.8-10.8)
[2019-07-17 13:39] LABS: ALBUMIN 4.3 g/dL (3.2-5.5); ALBUMIN/GLOBULIN RATIO 1.4 (1.0-2.2); ALKALINE PHOSPHATASE 70 IU/L (42-121); ALT ALANINE AMINOTRANSFERASE 24 IU/L (10-60); AST ASPARTATE AMINOTRANSFERASE 24 IU/L (10-42); BILIRUBIN,TOTAL 0.4 mg/dL (0.2-1.0); BUN - BLOOD UREA NITROGEN 9 mg/dL (6-20); CALCIUM 9.2 mg/dL (8.5-10.3); CARBON DIOXIDE - CO2 27 mmol/L (21-32); CHLORIDE 109 mmol/L (101-111); CHOL/HDL RATIO 4.9 (<4.4); CHOLESTEROL 235 mg/dL; CREATININE 0.7 mg/dL (0.4-1.0); GFR - MDRD 83 (>89); GLUCOSE 119 mg/dL (70-100); HDL CHOLESTEROL 48 mg/dL; LDL CHOLESTEROL,CALCULATED 158 mg/dL; LDL/HDL RATIO 3.3 (<4.4); SODIUM 143 mmol/L (135-145); TOTAL PROTEIN 7.3 g/dL (6.7-8.2); VLDL CHOLESTEROL 29 mg/dL
== END 2019-07-17 23:59 | disposition home or self-care (01) ==
LOC: LAB.WCP 07:59
PROVIDERS: ATTEND Family Medicine
DX: I63.9 Cerebral infarction, unspecified (principal); I10 Essential (primary) hypertension; E78.5 Hyperlipidemia, unspecified; R73.9 Hyperglycemia, unspecified
CPT/HCPCS: 36415; 80053; 80061; 83721; 84443; 85025

== ENCOUNTER 2019-07-28 11:44 | Outpatient (CLI) | payer MEDICARE, OTHER | END 2019-07-28 23:59 | disposition home or self-care (01) | LOC: LAB.R 11:44 | PROVIDERS: ATTEND Physician Assistant Medical | DX: R31.9 Hematuria, unspecified (principal) | CPT/HCPCS: 87086 ==

== ENCOUNTER 2019-07-31 08:00 | Outpatient (CLI) | payer MEDICARE, OTHER | END 2019-07-31 23:59 | disposition home or self-care (01) | LOC: LAB.WCP 08:00 | PROVIDERS: ATTEND Family Medicine | DX: Z53.9 Procedure and treatment not carried out, unspecified reason (principal) ==

== ENCOUNTER 2019-09-01 10:08 | Outpatient (CLI) | payer MEDICARE, OTHER ==
[2019-09-01 10:57] LABS: CALCIUM 9.3 mg/dL (8.5-10.3); CREATININE 0.6 mg/dL (0.4-1.0)
[2019-09-01] MEDS ORDERED: IOVERSOL 320 100 ML VIAL IVP ONE ×2 (12:39→13:47)
--- NOTE | 2019-09-03 07:33 | CT Report ---
Reason: HEMATURIA Procedure Date: 09/01/2019 Accession Number: [id number] / [id number] Procedure: CT - ABDOMEN/PELVIS W/WO CPT Code: FULL RESULT: EXAM: CT ABDOMEN AND PELVIS WITHOUT AND WITH CONTRAST (CT IVP) EXAM DATE: 09/01/2019 11:42 AM. CLINICAL HISTORY: HEMATURIA. COMPARISONS: None. TECHNIQUE: Routine helical imaging was performed through the kidneys, ureters and bladder in the precontrast, postcontrast IV Contrast: 100 cc Optiray 320. Reconstructions: Coronal and sagittal. In accordance with CT protocol optimization, one or more of the following dose reduction techniques were utilized for this exam: automated exposure control, adjustment of mA and/or KV based on patient size, or use of iterative reconstructive technique. FINDINGS: Lung Bases: 4 mm nodule right lower lobe (4, 1). Coronary artery calcifications. Multiple greater than 20 Subcentimeter densities in the liver too small to characterize largest 9 mm Liver: Normal. No masses. Gallbladder/Bile Ducts: Unremarkable. Spleen: Normal. Pancreas: Normal. Adrenal Glands: Normal. Kidneys/Bladder: Right Kidney/Ureter: No renal or ureteral stones. No hydronephrosis or hydroureter. 1.1 cm cyst. 7 mm low-density too small to characterize osmosis. Left Kidney/Ureter: No renal or ureteral stones. No hydronephrosis or hydroureter. 1.2 cm cyst. 5 mm density too small to characterize. Bladder: No stones. No wall thickening or mass. Peritoneal Cavity/Bowel: Normal. No free fluid, free air or adenopathy. No masses or acute inflammatory process. Pelvic Organs: Visualized pelvic organs are unremarkable. Vasculature: No aneurysms or other significant abnormality. Duplicated IVC. Bones: No significant abnormality. Other: None. IMPRESSION: 1. Bilateral renal cysts. Bilateral subcentimeter density too small to characterize. 2. Right lower lobe 4 mm nodule. Further evaluation could be with chest CT. 3.Multiple greater than 20 subcentimeter densities in the liver too small to characterize largest 9 mm RADIA
== END 2019-09-01 10:09 | disposition home or self-care (01) ==
LOC: LAB 10:08 → DI 10:09
PROVIDERS: ATTEND Physician Assistant Medical
DX: R31.9 Hematuria, unspecified (principal); Q61.02 Congenital multiple renal cysts; R91.1 Solitary pulmonary nodule; R16.0 Hepatomegaly, not elsewhere classified
CPT/HCPCS: 36415; 74178; 80048; Q9967

== ENCOUNTER 2019-10-15 11:01 | Outpatient (CLI) | payer MEDICARE, OTHER ==
--- NOTE | 2019-10-16 13:51 | CT Report ---
Reason: PULMONARY NODULE Procedure Date: 10/15/2019 Accession Number: [id number] / [id number] Procedure: CT - CHEST WO CPT Code: Final Report FULL RESULT: EXAM: CT CHEST EXAM DATE: 10/15/2019 11:55 AM. CLINICAL HISTORY: Pulmonary nodule. COMPARISONS: ABDOMEN/PELVIS W/WO 09/01/2019 11:22 AM. TECHNIQUE: Routine helical CT imaging was performed through the chest. IV contrast: None. Reconstructions: Coronal and sagittal. In accordance with CT protocol optimization, one or more of the following dose reduction techniques were utilized for this exam: automated exposure control, adjustment of mA and/or KV based on patient size, or use of iterative reconstructive technique. FINDINGS: Lungs/Pleura: 2 mm right upper lobe nodule image 68 series 4, 3 mm right upper lobe nodule image 106. Right lower lobe nodule image 78, 2 mm, 2 mm right lower lobe nodule image 125, 0.9 cm tubular appearing nodule in the right lower lobe on image 143, 5 mm nodule in the right lower lobe peripherally on image 147. 4 mm left upper lobe nodule image 78, 3 mm calcified granuloma in the left lower lobe on image 188. No lobar consolidation or interstitial lung disease. No pleural effusion or pneumothorax. Mediastinum: There are moderate to severe three-vessel coronary artery calcifications as visualized. By size criteria, there is no mediastinal or hilar lymphadenopathy. The thoracic aorta is moderately calcified. No pericardial effusion. Bones: No aggressive osseous lesions. Visualized Abdomen: Unremarkable. Other: None. IMPRESSION: Bilateral pulmonary nodules measuring up to 0.9 cm. Recommend follow-up of the described nodule(s) according to the following guidelines: Fleischner Society Recommendations 2017 MacMahon et al. Radiology 2017 Solid Nodules-Low Risk Patients: >8 mm (multiple) -CT at 3-6 months, then consider CT at 18-24 months Solid Nodules-High Risk Patients: >8 mm (single) -Consider CT, PET/CT, or tissue sampling at 3 months RADIA
== END 2019-10-15 11:02 | disposition home or self-care (01) ==
LOC: DI 11:01
PROVIDERS: ATTEND Physician Assistant Medical
DX: R91.8 Other nonspecific abnormal finding of lung field (principal)
CPT/HCPCS: 71250

== ENCOUNTER 2020-04-12 15:56 | Outpatient (CLI) | payer MEDICARE, OTHER | END 2020-04-12 15:57 | disposition home or self-care (01) | LOC: COV 15:56 | PROVIDERS: ATTEND Ophthalmology | DX: Z01.812 Encounter for preprocedural laboratory examination (principal); H25.12 Age-related nuclear cataract, left eye | CPT/HCPCS: 81599 ==

== ENCOUNTER 2020-04-26 07:12 | Outpatient (CLI) | payer MEDICARE, OTHER | END 2020-04-26 07:13 | disposition home or self-care (01) | LOC: LAB 07:12 | PROVIDERS: ATTEND Ophthalmology | DX: Z01.812 Encounter for preprocedural laboratory examination (principal); H25.12 Age-related nuclear cataract, left eye | CPT/HCPCS: 81599 ==

== ENCOUNTER 2020-05-31 11:40 | Outpatient (CLI) | payer MEDICARE, OTHER | END 2020-05-31 11:41 | disposition home or self-care (01) | LOC: LAB 11:40 | PROVIDERS: ATTEND Ophthalmology | DX: H25.11 Age-related nuclear cataract, right eye (principal); Z11.59 Encounter for screening for other viral diseases | CPT/HCPCS: 81599 ==

== ENCOUNTER 2020-06-02 08:04 | Day surgery (SDC) | payer MEDICARE, OTHER ==
[~2020-06-02 08:04] MED LIST: BRIMONIDINE 0.2% OPHTH DROPS 5 ML ONE; BSS/LIDOCAINE/EPINEPHRINE 1 ML SYRINGE ONE; CYCLOPENTOLATE 1% OPHTH DROPS 2 ML ONE; EPINEPHrine 1 MG/ML AMP ONE; KETOROLAC 0.45% OPHTH DROPS ONE; PHENYLEPHRINE 2.5% OPHTH 2 ML DROPS ONE; PROPARACAINE 0.5% OPHTH DROPS 15 ML ONE; TRIAMCIN/MOXIFLOX OPHTHALMIC 0.6 ML VIAL IO ONE; VANCOMYCIN OPHTHALMI 8MG/0.8ML 8 MG/0.8 ML SYRINGE IO ONE; timoloL maleate 0.5% OPHTH DROPS (10ML) ONE
[2020-06-02] MEDS ORDERED: LACTATED RINGERS 500 ML IV ONE (08:08)
--- NOTE | 2020-06-02 08:34 | ANESTHESIA ---
Pre-Anesthesia VS, & Labs - Diagnosis Left eye Cataract - Procedure Left PHACO with IOL Vital Signs: Temp Pulse Resp BP Pulse Ox 36.0 C L 70 20 156/69 H 96 06/02/20 08:20 06/02/20 08:20 06/02/20 08:20 06/02/20 08:20 06/02/20 08:20 Height 4 ft 5 in Weight (kg) 71.8 kg Body Mass Index 34.6 - NPO >8 hours - Is Patient ?: No - Lab Results Lab results reviewed: Yes Home Medications and Allergies Amlodipine Besylate [Norvasc] 5 mg PO DAILY 04/13/20 Allergies/Adverse Reactions: Allergies Allergy/AdvReac Type Severity Reaction Status Date / Time No Known Drug Allergies Allergy Verified 07/11/19 13:14 Anes History & Medical History - Anesthetic History Anesthesia Complications: reports: No previous complications Family history of Anesthesia Complications: Denies Family history of Malignant Hyperthermia: Denies - Medical History Cardiovascular: reports: Hypertension, [place] ( denies chest pain) Pulmonary: reports: Other Gastrointestinal: reports: None Urinary: reports: Incontinence Musculoskeletal: reports: Chronic back pain Endocrine/Autoimmune: reports: None Blood Disorders: reports: None Skin: reports: Other Smoking Status: Never smoker - Surgical History Eyes Ears Nose Throat (EENT): Cataracts Gynecologic: section, Hysterectomy Exam General: Alert, Oriented x3, Cooperative Dental: WNL Mouth Openin Fingerbreadth Neck Mobility: Normal Mallampati classification: II Thyromental Distance: 4-6 cm Respiratory: Lungs clear Cardiovascular: Regular rate Plan Anesthesia Type: MAC Consent for Procedure(s) Verified and Reviewed: Yes Code Status: Attempt Resuscitation ASA classification: 2-Mild systemic disease Is this case an emergency?: No
[2020-06-02] MEDS ORDERED: BRIMONIDINE 0.2% OPHTH DROPS 5 ML OPTH ONE (09:12)
[2020-06-02] MEDS ORDERED: EPINEPHrine 1 MG/ML AMP IR ONE (09:13)
[2020-06-02] MEDS ORDERED: BSS/LIDOCAINE/EPINEPHRINE 1 ML SYRINGE IO ONE (09:14)
[2020-06-02] MEDS ORDERED: CHONDR SULF/HYALURONATE SYRINGE IO ONE (09:14)
[2020-06-02] MEDS ORDERED: PROPARACAINE 0.5% OPHTH DROPS 15 ML EACHEYE ONE (09:14)
[2020-06-02] MEDS ORDERED: VANCOMYCIN OPHTHALMI 8MG/0.8ML 8 MG/0.8 ML SYRINGE IO ONE (09:15)
[2020-06-02] MEDS ORDERED: MIDAZOLAM 2 MG/2 ML VIAL IVP ONE (09:16)
[2020-06-02 09:54] VITALS: BP 161/83
--- NOTE | 2020-06-02 09:59 | OPERATIVE REPORT ---
DATE OF SERVICE: 06/02/2020 Physician: Fermin Dumont MD PREOPERATIVE DIAGNOSIS: Visually significant cataract, right eye. Cataract surgery was performed on the left eye on 04/28/2020. POSTOPERATIVE DIAGNOSIS: Visually significant cataract, right eye. Cataract surgery was performed on the left eye on 04/28/2020. PROCEDURE: Phacoemulsification with posterior chamber intraocular lens implant, right eye. SURGEON: Fermin Dumont MD ANESTHESIA: Monitored anesthesia care. COMPLICATIONS: None. OPERATIVE INDICATIONS: This is a 69-year-old woman with progressive vision loss in the right eye due to 2+ nuclear sclerotic cataract. Best corrected visual acuity was count fingers vision in the right eye. She has had a branch retinal vein occlusion in the past and vision potential for this eye is limited. She was consented at length concerning risks and benefits of cataract surgery, after which she expressed a desire to proceed with surgery. OPERATIVE PROCEDURE: Patient was taken to OR #3 and placed under monitored anesthesia care. A surgical timeout was conducted confirming correct patient, correct procedure, and correct surgical site. She was given topical anesthesia and prepped and draped in the usual sterile fashion. The eye was entered at the 12 and 9 o'clock positions. Intracameral Shugarcaine was injected into the anterior chamber, followed by Viscoat. A continuous-tear curvilinear capsulorrhexis was performed. The nucleus was hydrodissected and phacoemulsified. The cortex was evacuated using automated infusion and aspiration. Provisc was injected in the capsular bag, and a 30.0 diopter intraocular lens inserted in the bag. Infusion and aspiration was used to evacuate the viscoelastic materials. The eye was inflated to physiologic pressure using balanced salt solution and found to be watertight. Approximately 0.25 mL of a mixture of triamcinolone and moxifloxacin was injected trans sclerally into the vitreous in the inferotemporal quadrant. An additional 0.55 mL of a mixture of triamcinolone, moxifloxacin and vancomycin was injected subconjunctivally in the superior quadrant for infection and inflammation prophylaxis. Wound integrity was checked with Weck-Ree sponges. Patient was taken from the Operating Room in good condition and given postoperative instructions. TD: 06/02/2020 09:39 [facility]
== END 2020-06-02 08:05 | disposition home or self-care (01) ==
LOC: SDS 08:04
PROVIDERS: ATTEND Ophthalmology
DX: H25.11 Age-related nuclear cataract, right eye (principal); H35.342 Macular cyst, hole, or pseudohole, left eye; I10 Essential (primary) hypertension; I25.10 Atherosclerotic heart disease of native coronary artery without angina pectoris; Z87.891 Personal history of nicotine dependence
CPT/HCPCS: 66984; A9270; J3490; V2632

== ENCOUNTER 2020-10-14 11:11 | Outpatient (CLI) | payer MEDICARE, OTHER ==
[2020-10-14 19:16] LABS: BILIRUBIN,URINE NEGATIVE (NEGATIVE); GLUCOSE, URINE (UA) NEGATIVE (NEGATIVE); KETONES,URINE (UA) NEGATIVE (NEGATIVE); LEUKOCYTE ESTERASE, URINE NEGATIVE (NEGATIVE); NITRITE,URINE NEGATIVE (NEGATIVE); OCCULT BLOOD,URINE NEGATIVE (NEGATIVE); PROTEIN,URINE NEGATIVE (NEGATIVE); UROBILINOGEN,URINE 0.2 (NORMAL) E.U./dL (NORMAL)
[2020-10-14 19:39] LABS: AMORPHOUS SEDIMENT,UR Few /LPF; BACTERIA,URINE Rare /HPF (None Seen); CLARITY,URINE CLOUDY (CLEAR); RBC,URINE 0-5 /HPF (0-5); SQUAMOUS EPITHELIAL CELL,UR MANY Squamous (<= Few)
== END 2020-10-14 23:59 | disposition home or self-care (01) ==
LOC: LAB.R 11:11
PROVIDERS: ATTEND Internal Medicine
DX: M54.9 Dorsalgia, unspecified (principal)
CPT/HCPCS: 81001; 87086

== ENCOUNTER 2020-10-24 12:12 | Outpatient (CLI) | payer MEDICARE, OTHER ==
--- NOTE | 2020-10-24 13:02 | XRAY Report ---
PROCEDURE: Lumbar Spine 2 View INDICATIONS: BACK PX TECHNIQUE: 2 views of the lumbar spine were acquired. COMPARISON: Thoracic spine plain films same day FINDINGS: Bones: 5 [id number] vertebrae are present. There is normal bony alignment. No vertebral body compression fractures. No suspicious bony lesions. There is a minimal degree of degenerative disc d isease at L1-2 and L5-S1. Moderate facet osteoarthritis is progressive in its severity from L3 throug h S1 and most pronounced at L5-S1 where foraminal stenosis may be present as a result. Soft tissues: Overlying bowel gas pattern is normal. No suspicious soft tissue calcifications. IMPRESSION: No trauma found. Minimal degenerative disc disease. Progressively more prominent degener ative facet osteoarthritis from L3 through S1 and present to the degree that foraminal stenosis may b e present at L5-S1. Reviewed by: Oseas Araujo MD on 10/24/2020 1:01 PM [facility] [[email or web address]] Approved by: Oseas Araujo MD on 10/24/2020 1:01 PM PST Station ID: [id number]
--- NOTE | 2020-10-24 13:41 | XRAY Report ---
PROCEDURE: Thoracic Spine 2 View INDICATIONS: BACK PX TECHNIQUE: 3 views of the thoracic spine were acquired. COMPARISON: None. FINDINGS: Bones: No fractures or dislocations. There is mild degenerative disc disease as indicated by mild d isc height reduction but no evidence of compression fracture or subluxation No suspicious bony lesion s. 12 pairs of ribs are noted, and appear intact where visualized. Soft tissues: No paravertebral stripe thickening. IMPRESSION: Mild degenerative disc disease along the thoracic spine best seen at the middle and lower thirds, wit hout evidence of prior trauma or degenerative subluxation. Reviewed by: Oseas Araujo MD on 10/24/2020 1:40 PM PST Approved by: Oseas Araujo MD on 10/24/2020 1:40 PM PST Station ID: [id number]
== END 2020-10-24 12:13 | disposition home or self-care (01) ==
LOC: DI.N 12:12
PROVIDERS: ATTEND Internal Medicine
DX: M51.34 Other intervertebral disc degeneration, thoracic region (principal); M47.816 Spondylosis without myelopathy or radiculopathy, lumbar region; M47.817 Spondylosis without myelopathy or radiculopathy, lumbosacral region; M51.36 Other intervertebral disc degeneration, lumbar region; M51.37 Other intervertebral disc degeneration, lumbosacral region

== ENCOUNTER 2021-10-10 08:46 | Emergency (ER) | payer MEDICARE, OTHER | END 2021-10-10 09:13 | disposition home or self-care (01) | LOC: ED 08:46 | DX: Z53.21 Procedure and treatment not carried out due to patient leaving prior to being seen by health care provider (principal) ==

== ENCOUNTER 2022-08-01 09:52 | Outpatient (CLI) | payer MEDICARE, OTHER ==
[2022-08-01 12:52] LABS: BASOPHILS # (AUTO) 0.1 10^3/uL (0.0-0.1); BASOPHILS % (AUTO) 0.6 %; EOSINOPHILS # (AUTO) 0.2 10^3/uL (0.0-0.7); HCT - HEMATOCRIT 44.3 % (37.0-47.0); HGB - HEMOGLOBIN 14.6 g/dL (12.0-16.0); LYMPHOCYTES # (AUTO) 2.5 10^3/uL (1.5-3.5); LYMPHOCYTES % (AUTO) 26.7 %; MEAN CORPUSCULAR HEMOGLOBIN 30.2 pg (27.0-31.0); MEAN CORPUSCULAR VOLUME 91.5 fL (81.0-99.0); MEAN PLATELET VOLUME 13.1 fL (7.9-10.8); MONOCYTES # (AUTO) 0.8 10^3/uL (0.0-1.0); MONOCYTES % (AUTO) 8.8 %; NEUTROPHILS # (AUTO) 5.9 10^3/uL (1.5-6.6); NEUTROPHILS % (AUTO) 61.5 %; PLT - PLATELET COUNT 244 10^3/uL (130-450); RED BLOOD COUNT 4.84 10^6/uL (4.20-5.40); RED CELL DISTRIBUTION WIDTH 14.6 % (12.0-15.0); WHITE BLOOD COUNT 9.5 x10^3/uL (4.8-10.8)
[2022-08-01 13:38] LABS: THYROID STIMULATING HORMONE 3.15 uIU/mL (0.34-5.60)
[2022-08-01 13:54] LABS: ESTIMATED AVERAGE GLUCOSE 143 mg/dL (70-100); HEMOGLOBIN A1c% 6.6 % (4.27-6.07)
[2022-08-01 14:09] LABS: ALBUMIN 4.1 g/dL (3.2-5.5); ALBUMIN/GLOBULIN RATIO 1.3 (1.0-2.2); ALKALINE PHOSPHATASE 73 IU/L (42-121); ALT ALANINE AMINOTRANSFERASE 35 IU/L (10-60); AST ASPARTATE AMINOTRANSFERASE 33 IU/L (10-42); BILIRUBIN,TOTAL 0.4 mg/dL (0.2-1.0); BUN - BLOOD UREA NITROGEN 16 mg/dL (6-20); CALCIUM 9.5 mg/dL (8.5-10.3); CARBON DIOXIDE - CO2 28 mmol/L (21-32); CHLORIDE 104 mmol/L (101-111); CHOLESTEROL 288 mg/dL; CREATININE 0.7 mg/dL (0.4-1.0); GFR - MDRD 82 (>89); GLUCOSE 151 mg/dL (70-100); HDL CHOLESTEROL 58 mg/dL; LDL CHOLESTEROL,CALCULATED 201 mg/dL; LDL/HDL RATIO 3.5 (<4.4); SODIUM 142 mmol/L (135-145); TOTAL PROTEIN 7.3 g/dL (6.7-8.2); TRIGLYCERIDES 147 mg/dL; VLDL CHOLESTEROL 29 mg/dL
== END 2022-08-01 09:53 | disposition home or self-care (01) ==
LOC: LAB.N 09:52
PROVIDERS: ATTEND Internal Medicine
DX: E78.5 Hyperlipidemia, unspecified (principal); R41.3 Other amnesia; R73.01 Impaired fasting glucose; I10 Essential (primary) hypertension
CPT/HCPCS: 36415; 80053; 80061; 82607; 83036; 83721; 84443; 85025

== ENCOUNTER 2022-08-02 15:15 | Outpatient (CLI) | payer MEDICARE, OTHER ==
--- NOTE | 2022-08-03 10:18 | CT Report ---
PROCEDURE: CHEST WO INDICATIONS: LUNG NODULES TECHNIQUE: Noncontrast 1mm axial images were acquired from the pulmonary apices to the posterior costophrenic an gles. Axial 5 mm soft tissue kernel reconstructions were performed as well as 8 mm axial MIP and cor onal and sagittal 5 mm reformations. For radiation dose reduction, the following was used: automate d exposure control, adjustment of mA and/or kV according to patient size. COMPARISON: Noncontrast CT of the chest dated 10/15/2019. FINDINGS: Image quality: Excellent. Lungs and pleura: No acute air space opacities. 7 mm pulmonary nodule at the lateral right lower lob e is slightly decreased from the prior study (series 5/image 149). 3 mm pulmonary nodule at the later al right lung base is slightly decreased in size (series 5/image 143). No new pulmonary nodules. No p leural effusions or pneumothorax. Central and peripheral airways are patent and normal in caliber. Mediastinum: Heart size is normal. No pericardial effusion. No mediastinal adenopathy by size crit eria. Thoracic aorta and central pulmonary arteries are normal in size. There are scattered atheroma tous calcifications throughout the thoracic arch and the coronary arteries. Esophagus is normal in ca liber. No hiatal hernia. Bones and chest wall: No suspicious bony lesions. No vertebral body compression fractures. No axil melba or supraclavicular adenopathy by size criteria. The thyroid is normal in size and there are no incidental findings. Abdomen: Visualized upper abdominal solid organs and bowel loops appear normal in the absence of con trast. IMPRESSION: 1. Stable pulmonary nodules when compared with the CT dated 10/15/2019. No further follow-up recommen ded. 2. Mild aortic and coronary artery atherosclerosis. Reviewed by: Sherlyn Martinez MD on 08/03/2022 10:17 AM PDT Approved by: Sherlyn Martinez MD on 08/03/2022 10:17 AM PDT Station ID: [id number]
== END 2022-08-02 15:16 | disposition home or self-care (01) ==
LOC: DI 15:15
PROVIDERS: ATTEND Internal Medicine
DX: R91.8 Other nonspecific abnormal finding of lung field (principal); I70.0 Atherosclerosis of aorta; I25.10 Atherosclerotic heart disease of native coronary artery without angina pectoris

== ENCOUNTER 2022-08-21 11:38 | Outpatient (CLI) | payer MEDICARE, OTHER ==
--- NOTE | 2022-08-22 10:27 | Mammography Report ---
BILATERAL DIGITAL SCREENING MAMMOGRAM 3D/2D: 08/21/2022 CLINICAL: Routine screening. Comparison is made to exams dated: 05/11/2009 mammogram and 08/05/2007 mammogram - [facility]. There are scattered areas of fibroglandular density in both breasts (category b / 25%-50% glandular t issue). There are benign calcifications in both breasts. No significant masses, calcifications, or other findings are seen in either breast. IMPRESSION: BENIGN There is no mammographic evidence of malignancy. A 1 year screening mammogram is recommended. Based on the Tyrer Cuzick model (a risk assessment model) the patients lifetime risk is 3.7% and her 10 year risk is 3.0%. According to the ACR, ACS, and NCCN guidelines, an annual breast MRI exam jennifer g with mammogram is recommended if the patients lifetime risk is 20% or greater. This exam was interpreted at Station ID: [id number]. NOTE: For mammograms, a report in lay terms will be sent to the patient. Approximately 15% of breast malignancies will not be visualized mammographically. In the management of a palpable breast mass, a negative mammogram must not discourage biopsy of a clinically suspicious lesion. Electronically Signed By: Kirk jarrett/meliton:08/22/2022 06:57:00 ACR BI-RADS Category 2: Benign Finding(s) 3342F PARENCHYMAL PATTERN: (A) - The breast(s) demonstrate(s) scattered fibroglandular densities. BI-RADS CATEGORY: (2) - 2 RECOMMENDATION: (ANNUAL) - Recommend routine annual screening mammography. [id number] 1 year screening LATERALITY: (B)
== END 2022-08-21 11:39 | disposition home or self-care (01) ==
LOC: DI.N 11:38
DX: Z12.31 Encounter for screening mammogram for malignant neoplasm of breast (principal)

== ENCOUNTER 2022-08-23 14:37 | Outpatient (CLI) | payer MEDICARE, OTHER ==
--- NOTE | 2022-08-23 15:47 | MRI Report ---
PROCEDURE: Brain W/O INDICATIONS: MEMORY IMPAIRMENT TECHNIQUE: Noncontrast axial T1 spin echo, axial T2 fast spin echo, sagittal and axial FLAIR, coronal T2 fast sp in echo, axial gradient echo, axial diffusion and ADC through the brain. COMPARISON: None. FINDINGS: Image quality: Excellent. The ventricular system and cortical sulci demonstrate atrophy, consistent for patient's stated age. There are areas of hyperintense T2/FLAIR signal in the periventricular and subcortical white matter. There is no acute intra or extra-axial fluid collection. No acute hemorrhage, mass lesion or midlin e shift. Brainstem is unremarkable. Focus of old ischemia is noted in the right internal capsule/ba kobe ganglia region. There are no areas of restricted diffusion. Globes are symmetrical. Sinuses are aerated. Osseous structures are intact. IMPRESSION: 1. No acute intracranial process. 2. Moderate to severe atrophy and chronic microvascular ischemic changes. Reviewed by: Riri Mathias MD on 08/23/2022 3:45 PM PDT Approved by: Riri Mathias MD on 08/23/2022 3:45 PM PDT Station ID: [id number]
== END 2022-08-23 14:38 | disposition home or self-care (01) ==
LOC: DI 14:37
PROVIDERS: ATTEND Internal Medicine
DX: G31.9 Degenerative disease of nervous system, unspecified (principal); I67.2 Cerebral atherosclerosis

== ENCOUNTER 2022-10-22 14:49 | Outpatient (CLI) | payer MEDICARE, OTHER | END 2022-10-22 23:59 | disposition critical access hospital (66) | LOC: EMS 14:49 | DX: R41.0 Disorientation, unspecified (principal) | CPT/HCPCS: A0425; A0429 ==

== ENCOUNTER 2022-10-22 15:05 | Emergency (ER) | payer MEDICARE, OTHER ==
[2022-10-22] MEDS ORDERED: SODIUM CHLORIDE 0.9% 1,000 ML IV STA (15:20)
--- NOTE | 2022-10-22 15:26 | ED Physician Documentation ---
History of Present Illness - Stated complaint Stated Complaint: AMS - Chief complaint Chief Complaint: Neuro - History obtained from History obtained from: Patient, Family, EMS - Additonal information Additional information: The patient is brought to the emergency department by EMS for an episode of confusion today. According to the family, EMS states the patient was at [facility] with her family when she at some point became confused. She wandered out of the store and down to the bus stop, where she struck up a conversation with another person waiting for the bus and told them she did not know where she was. The person called 911 and patient's granddaughter also was able to be reached and came to the scene. Medics state that the granddaughter's main concern was a months long cognitive decline that the patient has displayed. It is not clear whether there has been any arrangement made for a higher level of care situation for the patient. The patient denies any complaints and states she does not remember being at [facility]. She does not remember waking up this morning and thinks she may have been at the bus stop before then. The patient apparently has also recently traveled to [place] for [employer]. Review of Systems Ten Systems: 10 systems reviewed and negative Constitutional: reports: Reviewed and negative Eyes: reports: Reviewed and negative Ears: reports: Reviewed and negative Nose: reports: Reviewed and negative Throat: reports: Reviewed and negative Cardiac: reports: Reviewed and negative Respiratory: reports: Reviewed and negative GI: reports: Reviewed and negative : reports: Reviewed and negative Skin: reports: Reviewed and negative Musculoskeletal: reports: Reviewed and negative Neurologic: reports: Confused Psychiatric: reports: Reviewed and negative Endocrine: reports: Reviewed and negative Immunocompromised: reports: Reviewed and negative PD PAST MEDICAL HISTORY - Past Medical History Cardiovascular: Hypertension, [place] ( denies chest pain) Respiratory: Other Endocrine/Autoimmune: None GI: None 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: None : Incontinence HEENT: Chronic vision loss Psych: None Musculoskeletal: Chronic back pain Derm: Other - Past Surgical History Past Surgical History: Yes /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 CPA: section, Hysterectomy - Present Medications Home Medications: Ambulatory Orders Medication Instructions Recorded Confirmed Amlodipine Besylate [Norvasc] 5 mg PO DAILY 04/13/20 04/25/20 Cyclobenzaprine [Flexeril] 10 mg PO TID PRN 10/22/22 10/22/22 Losartan Potassium [Cozaar] 100 mg PO DAILY 10/22/22 10/22/22 Rosuvastatin Calcium [Crestor] 20 mg PO DAILY 10/22/22 10/22/22 - Allergies Allergies/Adverse Reactions: Allergies Allergy/AdvReac Type Severity Reaction Status Date / Time No Known Drug Allergies Allergy Verified 10/22/22 15:17 - Social History Does the pt smoke?: No Smoking Status: Never smoker Does the pt drink ETOH?: No Does the pt have substance abuse?: No - Immunizations Immunizations are current?: No - POLST Patient has POLST: No POLST Status: Full Code PD ED PE NORMAL - Vitals Vital signs reviewed: Yes - General General: Alert and oriented X 3, No acute distress, Well developed/nourished, Other (answers questions appropriately. Does not recall the events of the morning. ) - HEENT HEENT: Atraumatic, PERRL, EOMI - Cardiac Cardiac: RRR, No murmur - Respiratory Respiratory: Clear bilaterally - Abdomen Abdomen: Normal bowel sounds, Soft, Non tender, Non distended - Derm Derm: Normal color, Warm and dry, No rash - Extremities Extremities: No deformity - Neuro Neuro: Alert and oriented X 3, remote ruby on rails developer 2-12 intact, No motor deficit, No sensory deficit, Normal speech - Psych Psych: Normal mood, Normal affect Results - Vitals Vitals: Oxygen O2 Source Room air - Labs Labs: Laboratory Tests 10/22/22 10/22/22 10/22/22 15:34 15:50 16:25 WBC 10.3 RBC 4.83 Hgb 14.5 Hct 44.2 MCV 91.5 MCH 30.0 MCHC 32.8 RDW 14.2 Plt Count 168 MPV 13.2 H Neut # (Auto) Not Reportable Lymph # (Auto) Not Reportable Donley # (Auto) Not Reportable Eos # (Auto) Not Reportable Baso # (Auto) Not Reportable Absolute Nucleated RBC Not Reportable Total Counted 100 Band Neuts % (Manual) 0 Abnorm Lymph % (Manual) 0 Nucleated RBC % Not Reportable Neutrophils # (Manual) 4.9 Lymphocytes # (Manual) 4.1 H Monocytes # (Manual) 1.0 Eosinophils # (Manual) 0.2 Basophils # (Manual) 0.0 Differential Comment MANUAL DIFFERENTIAL Platelet Estimate NORMAL (130-450,000) Platelet Morphology NORMAL APPEARANCE RBC Morph Micro Appear NORMAL APPEARANCE Sodium 140 Potassium 3.8 Chloride 104 Carbon Dioxide 27 Anion Gap 9.0 BUN 18 Creatinine 0.6 Estimated GFR (MDRD) 98 Glucose 109 H Calcium 9.3 Total Bilirubin 0.2 AST 27 ALT 25 Alkaline Phosphatase 73 Total Protein 6.9 Albumin 3.7 Globulin 3.2 Albumin/Globulin Ratio 1.2 Lipase 39 Urine Color YELLOW Urine Clarity CLEAR Urine pH 6.0 Ur Specific [place] 1.025 Urine Protein NEGATIVE Urine Glucose (UA) NEGATIVE Urine Ketones NEGATIVE Urine Occult Blood NEGATIVE Urine Nitrite NEGATIVE Urine Bilirubin NEGATIVE Urine Urobilinogen 0.2 (NORMAL) Ur Leukocyte Esterase NEGATIVE Ur Microscopic Review NOT INDICATED Urine Culture Comments NOT INDICATED - Rads (name of study) head CT Radiology: Final report received, EMP read indepedently, See rad report (neg) PD MEDICAL DECISION MAKING - ED course Complexity details: reviewed results, re-evaluated patient, considered differential, d/w patient ED course: The pt was worked up with labs and head CT, as well as UA. Work-up was unremarkable, and pt was coherent and appropriate in the ED. I felt she was stable for d/c, and family came to be with her. We have discussed the usual indications for return. Departure - Departure Disposition: 01 Home, Self Care Clinical Impression: Confusion and disorientation Condition: Stable Instructions: ED Confusion Comments: The labs, urinalysis, and CT scan of the head all looked good. There is no acute, serious cause of the confusion today. It sounds as though there has been some progressive decline in cognitive functioning, and you should see your primary doctor to have a Mini-Mental status exam done to evaluate for dementia or other process. At this point in time, you are stable for discharge home. Please be sure you are drinking plenty of fluids and staying well-hydrated, as dehydration can make many things worse. Please make the next available appointment to follow-up with your primary doctor. Discharge Date/Time: 10/22/22 18:38
[2022-10-22 15:43] LABS: BILIRUBIN,URINE NEGATIVE (NEGATIVE); GLUCOSE, URINE (UA) NEGATIVE (NEGATIVE); KETONES,URINE (UA) NEGATIVE (NEGATIVE); LEUKOCYTE ESTERASE, URINE NEGATIVE (NEGATIVE); NITRITE,URINE NEGATIVE (NEGATIVE); OCCULT BLOOD,URINE NEGATIVE (NEGATIVE); PROTEIN,URINE NEGATIVE (NEGATIVE); UROBILINOGEN,URINE 0.2 (NORMAL) E.U./dL (NORMAL)
[2022-10-22 15:44] LABS: CLARITY,URINE CLEAR (CLEAR)
[2022-10-22 16:03] LABS: BASOPHILS % (AUTO) 0.7 %; EOSINOPHILS % (AUTO) 3.1 %; HCT - HEMATOCRIT 44.2 % (37.0-47.0); HGB - HEMOGLOBIN 14.5 g/dL (12.0-16.0); LYMPHOCYTES % (AUTO) 30.8 %; MEAN CORPUSCULAR HGB CONC 32.8 g/dL (32.0-36.0); MEAN CORPUSCULAR VOLUME 91.5 fL (81.0-99.0); MEAN PLATELET VOLUME 13.2 fL (7.9-10.8); MONOCYTES % (AUTO) 9.9 %; NEUTROPHILS % (AUTO) 55.2 %; PLT - PLATELET COUNT 168 10^3/uL (130-450); RED BLOOD COUNT 4.83 10^6/uL (4.20-5.40); RED CELL DISTRIBUTION WIDTH 14.2 % (12.0-15.0); WHITE BLOOD COUNT 10.3 x10^3/uL (4.8-10.8)
[2022-10-22 16:06] LABS: ABNORMAL LYMPHS % (MANUAL) 0 %; BAND NEUTROPHILS % (MANUAL) 0 %
--- NOTE | 2022-10-22 16:30 | CT Report ---
PROCEDURE: HEAD WO INDICATIONS: altered mental status TECHNIQUE: Noncontrast 4.5 mm thick angled axial sections acquired from the foramen magnum to the vertex. For r adiation dose reduction, the following was used: automated exposure control, adjustment of mA and/or kV according to patient size. COMPARISON: 05/24/2017, 05/23/2017 FINDINGS: Image quality: There is streak artifact seen through the skull base. CSF spaces: Basal cisterns are patent. No extra-axial fluid collections. Ventricles are normal in size and shape. Brain: No midline shift. No intracranial masses or hemorrhage. Varela-white matter interface is norm al. Skull and face: Calvarium and visualized facial bones are intact, without suspicious lesions. Sinuses: Visualized sinuses and mastoids are clear. IMPRESSION: No significant noncontrast head CT abnormality can be seen to explain the patient's pres enting history of altered mental status. Reviewed by: Howard Hagen MD on 10/22/2022 3:29 PM [place] Approved by: Howard Hagen MD on 10/22/2022 3:29 PM [facility] Station ID: [id number]
[2022-10-22 16:31] LABS: EOSINOPHILS # (MANUAL) 0.2 10^3/uL (0-0.7); LYMPHOCYTES # (MANUAL) 4.1 10^3/uL (1.5-3.5); LYMPHOCYTES % (MANUAL) 40 %; NEUTROPHILS # (MANUAL) 4.9 10^3/uL (1.5-6.6); PLATELET MORPHOLOGY NORMAL APPEARANCE (NORMAL); RBC MORPHOLOGY (MULTIPLE) NORMAL APPEARANCE (NORMAL)
[2022-10-22 16:32] LABS: DIFFERENTIAL COMMENT MANUAL DIFFERENTIAL; PLATELET ESTIMATE, MANUAL NORMAL (130-450,000) (NORMAL)
[2022-10-22 16:46] LABS: ALBUMIN 3.7 g/dL (3.2-5.5); ALBUMIN/GLOBULIN RATIO 1.2 (1.0-2.2); BILIRUBIN,TOTAL 0.2 mg/dL (0.2-1.0); CALCIUM 9.3 mg/dL (8.5-10.3); CREATININE 0.6 mg/dL (0.4-1.0); POTASSIUM 3.8 mmol/L (3.5-5.0); TOTAL PROTEIN 6.9 g/dL (6.7-8.2)
[2022-10-22] MEDS ORDERED: MAG HYDROX/AL HYDROX/SIMETH 30 ML UDC PO STA (18:23)
[2022-10-22] MEDS ORDERED: amLODIPine 5 MG TABLET PO STA (18:25)
[2022-10-22 18:27] VITALS: BP 224/78
[2022-10-22] MEDS ORDERED: LOSARTAN 50 MG TABLET PO STA (18:28)
== END 2022-10-22 18:38 | disposition home or self-care (01) ==
LOC: EDUNIT# → ED 15:05
DX: R41.0 Disorientation, unspecified (principal)
CPT/HCPCS: 36415; 70450; 80053; 81003; 83690; 85025; 99283; 99284; A9270; 81001; 87086

== ENCOUNTER 2023-03-22 11:37 | Outpatient (CLI) | payer MEDICARE, OTHER ==
[2023-03-22 18:31] LABS: ALBUMIN 4.1 g/dL (3.2-5.5); ALBUMIN/GLOBULIN RATIO 1.2 (1.0-2.2); ALKALINE PHOSPHATASE 71 IU/L (42-121); ALT ALANINE AMINOTRANSFERASE 34 IU/L (10-60); AST ASPARTATE AMINOTRANSFERASE 38 IU/L (10-42); BILIRUBIN,TOTAL 0.7 mg/dL (0.2-1.0); BUN - BLOOD UREA NITROGEN 14 mg/dL (6-20); CALCIUM 8.8 mg/dL (8.5-10.3); CARBON DIOXIDE - CO2 28 mmol/L (21-32); CHLORIDE 108 mmol/L (101-111); CHOL/HDL RATIO 5.6 (<4.4); CHOLESTEROL 293 mg/dL; CREATININE 0.7 mg/dL (0.4-1.0); GFR - MDRD 82 (>89); GLUCOSE 145 mg/dL (70-100); HDL CHOLESTEROL 52 mg/dL; LDL CHOLESTEROL,CALCULATED 212 mg/dL; LDL/HDL RATIO 4.1 (<4.4); POTASSIUM 4.1 mmol/L (3.5-5.0); SODIUM 142 mmol/L (135-145); TOTAL PROTEIN 7.4 g/dL (6.7-8.2); TRIGLYCERIDES 145 mg/dL; VLDL CHOLESTEROL 29 mg/dL
[2023-03-22 21:44] LABS: ESTIMATED AVERAGE GLUCOSE 146 mg/dL (70-100); HEMOGLOBIN A1c% 6.7 % (4.27-6.07)
== END 2023-03-22 11:38 | disposition home or self-care (01) ==
LOC: LAB.N 11:37
PROVIDERS: ATTEND Internal Medicine
DX: E78.5 Hyperlipidemia, unspecified (principal); E11.9 Type 2 diabetes mellitus without complications
CPT/HCPCS: 36415; 80053; 80061; 83036; 83721

== ENCOUNTER 2023-08-05 08:51 | Outpatient (CLI) | payer MEDICARE, OTHER ==
[2023-08-05 13:20] LABS: ESTIMATED AVERAGE GLUCOSE 148 mg/dL (70-100); HEMOGLOBIN A1c% 6.8 % (4.27-6.07)
[2023-08-05 13:24] LABS: ALBUMIN 3.9 g/dL (3.2-5.5); ALBUMIN/GLOBULIN RATIO 1.5 (1.0-2.2); ALKALINE PHOSPHATASE 75 IU/L (42-121); ALT ALANINE AMINOTRANSFERASE 36 IU/L (10-60); AST ASPARTATE AMINOTRANSFERASE 35 IU/L (10-42); BILIRUBIN,TOTAL 0.5 mg/dL (0.2-1.0); BUN - BLOOD UREA NITROGEN 15 mg/dL (6-20); CALCIUM 9.4 mg/dL (8.5-10.3); CARBON DIOXIDE - CO2 28 mmol/L (21-32); CHLORIDE 106 mmol/L (101-111); CHOL/HDL RATIO 5.4 (<4.4); CHOLESTEROL 249 mg/dL; CREATININE 0.7 mg/dL (0.6-1.3); GFR - MDRD 82 (>89); GLUCOSE 156 mg/dL (74-104); HDL CHOLESTEROL 46 mg/dL; LDL CHOLESTEROL,CALCULATED 168 mg/dL; LDL/HDL RATIO 3.7 (<4.4); POTASSIUM 4.1 mmol/L (3.5-4.5); SODIUM 139 mmol/L (135-145); TOTAL PROTEIN 6.5 g/dL (6.4-8.9); TRIGLYCERIDES 175 mg/dL (48-352); VLDL CHOLESTEROL 35 mg/dL
== END 2023-08-05 08:52 | disposition home or self-care (01) ==
LOC: LAB.N 08:51
PROVIDERS: ATTEND Internal Medicine
DX: E11.9 Type 2 diabetes mellitus without complications (principal); E78.5 Hyperlipidemia, unspecified
CPT/HCPCS: 36415; 80053; 80061; 83036; 83721

== ENCOUNTER 2024-01-29 11:01 | Outpatient (CLI) | payer MEDICARE, OTHER ==
--- NOTE | 2024-01-30 07:34 | Mammography Report ---
BILATERAL DIGITAL SCREENING MAMMOGRAM 3D/2D: 01/29/2024 CLINICAL: Routine screening. Comparison is made to exams dated: 08/21/2022 mammogram, 05/11/2009 mammogram, and 08/05/2007 mammogram - [facility]. There are scattered areas of fibroglandular density in both breasts (category b / 25%-50% glandular t issue). There are benign calcifications in both breasts. No significant masses, calcifications, or other findings are seen in either breast. There has been no significant interval change. IMPRESSION: BENIGN There is no mammographic evidence of malignancy. A 1 year screening mammogram is recommended. Based on the Tyrer Cuzick model (a risk assessment model) the patient's lifetime risk is 3.1% and her 10 year risk is 3.1%. According to the ACR, ACS, and NCCN guidelines, an annual breast MRI exam jennifer g with mammogram is recommended if the patient's lifetime risk is 20% or greater. This exam was interpreted at Station ID: [id number]. NOTE: For mammograms, a report in lay terms will be sent to the patient. Approximately 15% of breast malignancies will not be visualized mammographically. In the management of a palpable breast mass, a negative mammogram must not discourage biopsy of a clinically suspicious lesion. Electronically Signed By: Kirk jarrett/meliton:01/29/2024 12:54:31 ACR BI-RADS Category 2: Benign Finding(s) 3342F PARENCHYMAL PATTERN: (A) - The breast(s) demonstrate(s) scattered fibroglandular densities. BI-RADS CATEGORY: (2) - 2 RECOMMENDATION: (ANNUAL) - Recommend routine annual screening mammography. [id number] 1 year screening LATERALITY: (B)
== END 2024-01-29 11:02 | disposition home or self-care (01) ==
LOC: DI.N 11:01
PROVIDERS: ATTEND Internal Medicine
DX: Z12.31 Encounter for screening mammogram for malignant neoplasm of breast (principal); R92.323 Mammographic fibroglandular density, bilateral breasts; R92.1 Mammographic calcification found on diagnostic imaging of breast